=== PATIENT | female | born 1965 | race Asian ===

== ENCOUNTER 2018-08-31 09:14 | Day surgery (SDC) | payer OTHER ==
[2018-08-31] MEDS ORDERED: LACTATED RINGERS 1,000 ML IV ONE (09:47)
[2018-08-31] MEDS ORDERED: fentaNYL 250 MCG/5 ML VIAL IVP ONE (10:43)
[2018-08-31] MEDS ORDERED: MIDAZOLAM 2 MG/2 ML VIAL IVP ONE (10:43)
[2018-08-31] MEDS ORDERED: ONDANSETRON 4 MG/2 ML VIAL ONE (11:14)
[2018-08-31 11:36] VITALS: BP 98/72
== END 2018-08-31 09:15 | disposition home or self-care (01) ==
LOC: SDS 09:14
PROVIDERS: ATTEND Surgery
PROC: 0DJD8ZZ Inspection of Lower Intestinal Tract, Via Natural or Artificial Opening Endoscopic (ICD-10-PCS; principal; 2018-08-31 10:30)
DX: Z12.11 Encounter for screening for malignant neoplasm of colon (principal); K64.8 Other hemorrhoids; E66.3 Overweight; Z68.26 Body mass index [BMI] 26.0-26.9, adult; K21.9 Gastro-esophageal reflux disease without esophagitis
CPT/HCPCS: 45378; J3010; J7120

== ENCOUNTER 2020-05-30 13:15 | Outpatient (CLI) | payer OTHER ==
--- NOTE | 2020-05-30 16:29 | CONSULTATION NOTE ---
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 Her most recent cystoscopy in January, was clear. Patient unfortunately presented with increasing back pain, did participate in physical therapy for over 4 weeks, without any improvement. Unfortunately in the middle of this, she had changed primary care providers, and with increasing pain was seen in urgently the ED, with diagnosis of recurrence with mets to spine, lung, and lymph nodes. In the context of this, she was biopsied through a lymph node, with a diagnosis of metastatic urothelial cancer. She is being seen at [facility], and has had her first treatment of chemotherapy with gemcitabine and cis- napakiak. She did fairly well with this, in fact has had improvement of her pain, most likely attributed to her dexamethasone 4 mg twice daily. Patient's pain is mostly located in the lower back with a band across her lower lumbar area, she has pain radiating into her right hip, down her right leg and most intensely on the outer right calf area. She describes it as a tight gripping pain, this fluctuates some. She has had bad experience with oxycodone before with severe nausea and vomiting and flushing. She has managed to tolerate hydrocodone, though with some tentativeness, she has been using one half to full tab every 4 hours [id number]. She does feel like this is adequately managed it, has had intermittent ibuprofen though they have wanted her to avoid this because of her kidneys so she has good kidney function. I believe her pain is most likely improved today because of the dexamethasone, she still has pain, but is able to ambulate with only a small foot drop, is able to get from sitting to standing. She does report pain exacerbates at nighttime. She is to receive radiation to the spine, in the context of this she is hesitant to do much change with her pain regimen. We did discuss in the scheme of things with her neuropathic component, would recommend adding pregabalin, because of her hesitancy and side effects of medications, would recommend we "test dose" pregabalin 25 mg at bedtime particularly since she awakens in pain with sharp shooting down her right leg. Counseling provided regarding long acting and short acting medication, patient at this point in time is taking equal analgesic to fentanyl 12 mcg patch, could translate over at point patient is stable from post radiation. We also discussed bridging if her pain exacerbates over the weekend, with 4 mg daily for pain until radiation simulated and completed. Patient's other symptom burden includes anorexia, though she is remains fairly weight stable, fatigue, and just the anxiety of dealing with a serious illness. I am meeting with patient and her today, to establish care, and initiate conversation regarding goals of care. Medical/Surgical History - Past Medical History Cardiovascular: reports: High cholesterol Respiratory: reports: Asthma GI: reports: GERD : reports: Other (bladder cancer) Psych: reports: Claustrophobia Musculoskeletal: reports: Osteoarthritis, Fatigue Derm: reports: Eczema MRSA Hx?: No - Past Surgical History /PERINATAL TECH: reports: section (), Other (nephrectomy 03/01/2019; bladder resect for cancer) Cardiovascular: reports: Other (portacath placement) - Substance History Use: Uses substance without health or social issues: Tobacco (none), Alcohol (rarely) Social History - Living Situation Living arrangement: At home Living Situation: With spouse/s.o. Support System: Patient is to Seth, they have been together for 17 years, though discussed this last winter. She has 2 sons, 1 who is currently [facility], the other is here and available for support. She also has 2 siblings who are providing support, taking turns to help with household and support through chemotherapy sessions. She has still been working, she has a [employer], is trying to sort through all the pieces regarding her current situation and implications for her future. She has supportive scientologist community, has set up a [employer], and is looking at ways to better support her sons as well. Family History - Family History Family History: Mother: (sister 62 of neuroendocrine CA of liver), CAD, Cancer (breast cancer), Diabetes, Type 2, Father: , Cancer, Sister: , Cancer Family History Comment/Other: Which she has had experience with her father dying a further prolonged of glioblastoma, they did care for him through his end-of-life. She also had experience with her sister who fairly quickly within a few months of her diagnosis. Medications/Allergies - Medications Home Medications: Ambulatory Orders Medication Instructions Recorded Confirmed Albuterol Sulf [Ventolin Hfa 1 puffs PO DAILY PRN 08/30/18 05/30/20 Inhaler] EPINEPHrine [Epinephrine] 1 ml SQ ONCE PRN 08/30/18 05/30/20 Pravastatin [Pravachol] 10 mg PO DAILY 08/30/18 05/30/20 HYDROcod/ACETAM 5/325 [[place] 5/325] 1 - 2 tab PO Q4HR PRN 05/30/20 05/30/20 Ondansetron [Ondansetron Odt] 8 mg PO Q8HR PRN 05/30/20 05/30/20 Pregabalin [Lyrica] 25 mg PO QPM 05/30/20 05/30/20 Prochlorperazine Maleate 10 mg PO Q8HR PRN 05/30/20 05/30/20 [Compazine] Senna [Senokot] 2 tab PO BID MDD titrate to effect 05/30/20 05/30/20 dexAMETHasone [Decadron] 4 mg PO BID MDD Scheduled with 05/30/20 05/30/20 chemo polyethylene glycoL 3350 [Miralax] 17 gm PO DAILY 05/30/20 05/30/20 Cholecalciferol (Vitamin D3) 1,000 units PO DAILY 06/01/20 06/01/20 [Vitamin D3] Ibuprofen [Motrin] 400 mg PO Q6HR PRN 06/01/20 06/01/20 - Allergies Allergies/Adverse Reactions: Allergies Allergy/AdvReac Type Severity Reaction Status Date / Time peanut Allergy Severe Anaphylaxis Verified 08/30/18 14:43 sulfamethoxazole Allergy Severe Anaphylaxis Verified 08/30/18 14:43 [From ] trimethoprim [From ] Allergy Severe Anaphylaxis Verified 08/30/18 14:43 adhesive AdvReac Rash Verified 06/01/20 17:56 oxycodone AdvReac Diaphoresis Verified 06/01/20 17:57 Review of Systems - Constitutional Constitutional: reports: Fatigue, Weakness, Poor appetite. denies: Fever, Chills - Eyes Eyes: reports: Corrective lenses (reading) - Ears, Nose & Throat Ears, Nose & Throat: reports: Dry mouth (taste changes), Other (recent node right neck; r/o CA-suspect possible rx to COVID vaccine) - Cardiovascular Cardiovascular: reports: Decr. exercise tolerance - Respiratory Respiratory: reports: Wheezing (asthma) - Gastrointestinal Gastrointestinal: reports: Constipation, Poor appetite, Early satiety - Genitourinary Genitourinary: denies: Incontinence - Neurological Neurological: reports: Focal weakness (right leg), Numbness, Abnormal gait - Psychiatric Psychiatric: denies: Depression, Anxiety - Hematologic/Lymphatic Hematologic/Lymph: reports: Anemia (persistent prior to dx). denies: Recurrent infections - All Other Systems All Other Systems: reports: Reviewed and negative Physical Exam - Vital Signs Temperature: 97.7 C Pulse Rate: 74 Respiratory Rate: 16 O2 Saturation: 98 (ra @ rest) Blood Pressure: 124/74 - Physical Exam General Appearance: positive: Alert, Mild distress Eyes Bilateral: positive: Normal inspection ENT: positive: No signs of dehydration Neck: positive: Trachea midline Cardiovascular: positive: Regular rate & rhythm Respiratory: positive: No respiratory distress, Breath sounds nml Abdomen: positive: Soft, Nml bowel sounds Skin: positive: Pallor, Dryness Extremities: positive: Other (slight foot drag on right; limited ability to aduct and lift; hip flexion forward limited to mid calf; making dressing di fficult) Neurologic/Psychiatric: positive: Oriented x3, Mood/affect nml Palliative Care - POLST Patient has POLST: No Pain: Comment (see HPI) Tiredness/Fatigue: Mild (1-3) Drowsiness/Sedation: Mild (1-3) Nausea: Mild (1-3) Anorexia: Moderate (4-6) Dyspnea: None Depression: None Anxiety: None Feelings of wellbeing/Perceived Quality of Life: Good Sleep: Variable sleep pattern Constipation: Yes, Opoid induced, Intermittent constipation Performance Status: Patient has had fluctuation in her functional status, it is improved currently with higher doses of dexamethasone. She is able to get from sitting to standing, ambulate with a rolling walker, get in and out of bed, but has limited forward flexion, does need some assistance with lower extremity dressing. This makes toileting very complicated, they do have some adaptive equipment. - Palliative Care Discussion: Family meeting with patient and her Seth. This is been fairly quick and overwhelming experience with her diagnosis, as well as trying to navigate a very complex and involved treatment plan. She has completed her first cycle of chemotherapy, her siblings are taking shifts and community is riling to provide support. Patient is aware of the seriousness of her diagnosis, is trying to stay in the moment and hoping for the best. She feels best by coping with small chunks of information, she has not been out "searching on the Internet", but does like to be involved in her decision making and feels best when things are organized and hoping to create a sense of control. Her her current goals are to focus on quality of life issues, and particularly assisting with getting her pain under control and mobility. She has had 2 experiences in her family regarding cancer, her family took care of her father for several years with a glioblastoma, and in juxtaposition her sister who within a few months. Counseling provided to normalize current feelings, set goals of care, and prov em information on role of palliative care in the context of pain and symptom management, and anticipatory guidance. Results - Lab Results Lab results reviewed: Yes Lab and Imaging Results: 05/27 WBC is 8.5; RBC 3.88; hemoglobin 10.4; hematocrit 33%; platelets 308 Impression and Recommendations - Palliative Care Impression: This is a micki 54-year-old woman who presents with urethral CA status post radical nephrectomy on right, with initiation of chemotherapy of gemcitabine/cis-napakiak, and pending radiation to her L3 and L4. Patient presents with moderate symptom burden, with pain, anorexia, constipation, and fatigue. Palliative care establishing rapport, exploring goals of care, and anticipatory guidance as well as pain and symptom management Recommendations/Counseling Done: 1. Pain of neoplastic origin. Patient's pain is multifactorial, though focalized pain is attributed to her L4 lesion, with radiation across her lower back, down into her right leg short shooting down with most severe pain and outer right calf area. She does get some relief with her hydrocodone 5 mg / 325 mg half tab to 1 tab every 4 hours, she is quite hesitant regarding finding balance between sedation and pain management. She is hopeful with the chemotherapy as well as pending radiation on the spine, to be able to minimize opioid burden. She has gotten quite a bit of relief with the dexamethasone 8 mg she has been taking for her antiemetic for chemotherapy. Counseling provided regarding if pain escalates after discontinuation, she can continue use 4 mg daily until radiation effective or implemented. Also given the neuropathic component of her pain, recommended pregabalin, given her hesitation for medications and side effects, recommended we trial 25 mg at bedtime, to test dose her response to this. Counseling also provided regarding recommendation of long-acting pain medication, would recommend fentanyl 12 mcg patch given her side effects of oxycodone, reviewed could start at low dosing, fentanyl 12 mcg equals 4 tabs of Vicodin, she is currently using between 4-6 tabs. Counseling provided regarding titration can use 1-2 up to 8 tabs in 24 hours. She is also supplementing with ibuprofen, encouraged not to use during time she is using dexamethasone. Agreed would wait until radiation initiated and completed, and titrate pain medication accordingly, most likely is still going to need some opioid support. 2. Constipation, opioid induced. Counseling provided regarding bowel program, instructed to take half to 1 capful MiraLAX daily, with ability titration up to 2 times a day, as well as senna 8.6 mg 2 tabs twice a day, with increase to 6-8 tabs if no BM in 48 hours. Counseling regarding goal for regular bowel movement daily, and titration of MiraLAX versus senna. 3. Anxiety. This is multifactorial, given her current initiation of treatment, work-up and staging of disease, as well as establish care at [facility] and now with palliative care. Counseling provided to normalize grief and loss process, negotiate how best to share information and support coping, and looking at local resources to support sons. 4. Advanced care planning. Patient and have done some advance care planning regarding their boyd, DPOA, advanced care planning documents. We will continue to explore goals of care, short-term goals are to have better pain control, improve mobility, and establish rapport with palliative care. Both have had experiences with hospice and end-of-life planning, and their own family experiences. Counseling provided regarding the continuum of care, hoping for th e best, but also continuing to explore resources that would be of benefit. 90 minutes with greater than 50% of this done in counseling regarding pain and symptom management, goals of care, establishing rapport and anticipatory guidance. [facility]: [phone]
== END 2020-05-30 13:16 | disposition home or self-care (01) ==
LOC: PC 13:15
PROVIDERS: ATTEND Nurse Practitioner Adult Health
DX: Z51.5 Encounter for palliative care (principal); G89.3 Neoplasm related pain (acute) (chronic); C68.8 Malignant neoplasm of overlapping sites of urinary organs; C78.00 Secondary malignant neoplasm of unspecified lung; C77.9 Secondary and unspecified malignant neoplasm of lymph node, unspecified; C79.51 Secondary malignant neoplasm of bone; K59.03 Drug induced constipation; T40.2X5A Adverse effect of other opioids, initial encounter; F41.9 Anxiety disorder, unspecified; Z79.899 Other long term (current) drug therapy; Z90.5 Acquired absence of kidney; Z79.891 Long term (current) use of opiate analgesic
CPT/HCPCS: 99345

== ENCOUNTER 2020-06-06 12:15 | Outpatient (CLI) | payer OTHER ==
--- NOTE | 2020-06-06 17:01 | CONSULTATION NOTE ---
Palliative Care Follow Up - Referral Referring Provider: Gladis SHOOK Time of Visit: [id number] Referral setting: Home Referral Reason: Pain of neoplastic origin/Urothelial Met Cancer with bone mets - Information Sources Records reviewed: Previous records reviewed History/Review of Systems obtained from: Patient, Family ( Seth present) Exam limitations: No limitations - History of Present Illness Update Brief HPI Update: Please see previous P HI on 05/30 for more complete history. 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 She is currently being seen at [facility], and receiving gemcitabine and cis- [place]. She is scheduled to have radiation next week for her L3 and L4 mets, this is the source of her severe pain. She is hopeful to get relief regarding her pain, as well as consideration of both quantity and quality of life with her current treatment plan for stage IV disease. Palliative care is seeing patient for pain management. We had trialed a small dose of pregabalin 25 mg at bedtime, she is having some altered cognitive issues with dreams, and awakening. She does though feel it may be improving her pain on awakening. This is her most significant 10 out of 10 pain when she gets up in the morning after laying flat all night in her bed, and waiting for medication to "kick in" as well as change in position helps. She is mostly sleeping on her left side to relieve the stress. Her pain is located across the band of her lower lumbar area and radiates down to her right hip, down into her right leg and intensely sharp shooting on the out right calf area, described as a vice logistic manager. She has been using hydrocodone 5 mg / 325 mg every 4 hours [id number], has had a few flares with rescue of ibuprofen. She also is using ice pack on her back with good relief. She is most uncomfortable sitting or standing in one position, the long car rides have triggered pain exacerbations. She is hesitant to change up her pain regimen as she is awaiting hopefully a good response from radiation, we have agreed to continue her current regimen until post radiation in time to see if this is impacted by it. Review of MRI for radiation planning purposes, on 06/03 showed a replacement of the L4 and L3 vertebral body marrow with cellular process, epidural extension is seen on the right side which would account for her neuropathic pain component, and there are pathologic fractures of both vertebrae which appear to have progressed slightly since last CT scan as patient has epidural disease. It also shows a small focus in the L5 which is more apparent than earlier study. She is scheduled for both 06/11 and 06/13 with possible steroid dosing when she sees the radiation oncologist. She does have some mild anorexia, attributes this to taste changes as well as persistent fatigue and anxiety appropriate for the situation. Past Medical History: Urethral CA status post radical nephrectomy on 03/01/2019; bladder cancer status post TURBTs; High cholesterol, asthma, GERD, claustrophobia, osteoarthritis, eczema, cesareans section x2, Port-A-Cath placement Social History - Living Situation Living arrangement: At home Living Situation: With spouse/s.o. Support System: Patient is to Seth, they have been together 17 years though just got this last year. She has 2 sons, she also has siblings who are providing support. She has been still working as she is a [employer] company, she is still trying to sort through her legal and financial planning. She has a very supportive jehovah's witness and community. Medications/Allergies - Medications Home Medications: Ambulatory Orders Medication Instructions Recorded Confirmed Albuterol Sulf [Ventolin Hfa 1 puffs PO DAILY PRN 08/30/18 06/08/20 Inhaler] EPINEPHrine [Epinephrine] 1 ml SQ ONCE PRN 08/30/18 06/08/20 Pravastatin [Pravachol] 10 mg PO DAILY 08/30/18 06/08/20 HYDROcod/ACETAM 5/325 [[place] 5/325] 1 - 2 tab PO Q4HR PRN MDD 8 05/30/20 06/08/20 tabs/24 hrs Ondansetron [Ondansetron Odt] 8 mg PO Q8HR PRN 05/30/20 06/08/20 Pregabalin [Lyrica] 25 mg PO QPM MDD 50 mg @ hs 05/30/20 06/08/20 Prochlorperazine Maleate 10 mg PO Q8HR PRN 05/30/20 06/08/20 [Compazine] Senna [Senokot] 2 tab PO BID PRN MDD titrate to 05/30/20 06/08/20 effect dexAMETHasone [Decadron] 4 mg PO BID MDD Scheduled with 05/30/20 06/08/20 chemo polyethylene glycoL 3350 [Miralax] 17 gm PO DAILY PRN 05/30/20 06/08/20 Cholecalciferol (Vitamin D3) 1,000 units PO DAILY 06/01/20 06/08/20 [Vitamin D3] Ibuprofen [Motrin] 400 mg PO Q6HR PRN 06/01/20 06/08/20 - Allergies Allergies/Adverse Reactions: Allergies Allergy/AdvReac Type Severity Reaction Status Date / Time peanut Allergy Severe Anaphylaxis Verified 08/30/18 14:43 sulfamethoxazole Allergy Severe Anaphylaxis Verified 08/30/18 14:43 [From ] trimethoprim [From ] Allergy Severe Anaphylaxis Verified 08/30/18 14:43 adhesive AdvReac Rash Verified 06/01/20 17:56 oxycodone AdvReac Diaphoresis Verified 06/01/20 17:57 Review of Systems - Constitutional Constitutional: reports: Fatigue, Weakness, Poor appetite, Weight loss. denies: Fever, Chills - Eyes Eyes: reports: Corrective lenses (reading) - Ears, Nose & Throat Ears, Nose & Throat: reports: Dry mouth (taste changes), Other (recent node right neck; r/o CA-suspect possible rx to COVID vaccine) - Cardiovascular Cardiovascular: reports: Decr. exercise tolerance - Respiratory Respiratory: reports: Wheezing (asthma). denies: SOB at rest - Gastrointestinal Gastrointestinal: reports: Constipation (currently controlled), Nausea (intermittent), Poor appetite, Early satiety - Integumentary Integumentary: reports: Dryness - Neurological Neurological: reports: Focal weakness (right leg), Numbness, Abnormal gait - Psychiatric Psychiatric: reports: Anxiety - Hematologic/Lymphatic Hematologic/Lymph: reports: Anemia (persistent prior to dx). denies: Recurrent infections - All Other Systems All Other Systems: reports: Reviewed and negative Physical Exam - Vital Signs Temperature: 97.9 C Pulse Rate: 78 Respiratory Rate: 18 O2 Saturation: 98 (ra @ rest) Blood Pressure: 114/68 - Physical Exam General Appearance: positive: No acute distress, Alert Eyes Bilateral: positive: Normal inspection ENT: positive: No signs of dehydration Neck: positive: Trachea midline Cardiovascular: positive: Regular rate & rhythm Respiratory: positive: No respiratory distress, Breath sounds nml Abdomen: positive: Soft, Nml bowel sounds Skin: positive: Pallor, Dryness Extremities: negative: Full ROM (limited on RLE) Neurologic/Psychiatric: positive: Oriented x3, Mood/affect nml Palliative Care - POLST Patient has POLST: No POLST Status: Full Code Pain: Pain unchanged, Pattern (SEE HPI) Tiredness/Fatigue: Moderate (4-6) Drowsiness/Sedation: Mild (1-3) Nausea: Mild (1-3) Anorexia: Mild (1-3) Dyspnea: None Depression: None Anxiety: Mild (1-3) Sleep: Variable sleep pattern Constipation: Yes, Opoid induced, Managed Performance Status: Patient is adapting some to reaching her lower extremities, though still remains quite limited. She is having some difficulty getting in and out of bed related to her right hip and leg pain. She is able to manage her shower with minor assist, ambulating with a rolling walker. - Palliative Care Discussion: It is been very busy and somewhat overwhelming with initiation of chemotherapy, now to complete radiation therapy on the week that she is soft, as well as transportation [id number] to [facility]. She is trying to manage as she is organizing financial legal affairs, wanting very much to stay in the moment, and is hoping for the best with improvement in her pain, and successful treatment. She does have good social support, she has a friend coming with medical background, who is can help her this next week with her radiation. This gives her a sense of confidence and also her a break. Results - Lab Results Lab results reviewed: Yes Lab and Imaging Results: 06/03 magnesium 2.1; WBC 5.5 when; RBC 3.67; hemoglobin 9.9; hematocrit 31; platelet count 223 chemistries are within normal range Impression and Recommendations - Palliative Care Impression: This is a micki 54-year-old woman who presents with urothelial CA status post radical nephrectomy on right, bladder cancer with mets to the L3, L4, and pulmonary mets. Patient has pending radiation scheduled next week. Patient presents with moderate symptom burden of pain, anorexia, and fatigue. Pa lliative care providing support for pain and symptom management, anticipatory guidance, as well as exploring goals of care Recommendations/Counseling Done: 1. Pain of neoplastic origin. Patient's pain is multifactorial, though focalized pain is attributed to her L3/L4 Lesions with epidural extension on right side. She is pending radiation, her pain is exacerbated by the car ride and laying flat. Counseling provided regarding some strategies to manage around these episodes. Radiation oncology also looking at doing steroids, if she does have a flare and persistent, would recommend adding dexamethasone. Counseling provided regarding [id number] dosing of Vicodin, encouraged to increase pregabalin to 50 mg at bedtime, she has had some side effects, but may benefit from higher dosing given the neuropathic component of her pain. Patient would benefit from long-acting opioid, but would like to wait until results of radiation therapy are known. 2. Constipation, opioid induced. Patient has not needed laxatives, suspect as a result of side effects of her chemo. Counseling provided though regarding titration of bowel meds, and to not let greater than 48 hours ago. 3. Anxiety. This is multifactorial, both she and her are somewhat overwhelmed with their most recent schedule, should settle down after completion of radiation, is still quite burdensome traveling down to [place]. Encouraged verbalization of normal grief and loss processes. 4. Advanced care planning. Patient continues to complete legal and financial documents, will await outcome of radiation and further response to treatment regarding priorities and goals of care. 45 minutes with greater than 50% of this done in counseling for pain and symptom management, anticipatory guidance, and establishing rapport
== END 2020-06-06 12:16 | disposition home or self-care (01) ==
LOC: PC 12:15
PROVIDERS: ATTEND Nurse Practitioner Adult Health
DX: Z51.5 Encounter for palliative care (principal); G89.3 Neoplasm related pain (acute) (chronic); C67.9 Malignant neoplasm of bladder, unspecified; C78.00 Secondary malignant neoplasm of unspecified lung; C77.9 Secondary and unspecified malignant neoplasm of lymph node, unspecified; C79.51 Secondary malignant neoplasm of bone; K59.03 Drug induced constipation; T40.2X5A Adverse effect of other opioids, initial encounter; F41.9 Anxiety disorder, unspecified; Z79.899 Other long term (current) drug therapy; Z90.5 Acquired absence of kidney
CPT/HCPCS: 99349

== ENCOUNTER 2020-07-03 11:10 | Outpatient (CLI) | payer OTHER ==
--- NOTE | 2020-07-03 17:04 | CONSULTATION NOTE ---
Palliative Care Follow Up - Referral Referring Provider: Gladis SHOOK Time of Visit: [id number] Referral setting: Home Referral Reason: Pain of neoplastic origin/LE swelling/Constipation/Met Urothelial CA - Information Sources Records reviewed: Previous records reviewed History/Review of Systems obtained from: Patient, Family ( Seth) Exam limitations: No limitations - History of Present Illness Update Brief HPI Update: Please see previous HPI on 05/30 for more complete history. This is a micki 54-year-old woman with right upper tract urothelial cancer status post radical nephrectomy and bladder cancer recurrence with mets to the spine, lung, and lymph nodes. She is currently being seen at [facility] and has been receiving gemcitabine and cis[place], has completed cycle 2, with plans for restaging scans after the end of cycle 3 to start again next Tuesday. She is starting to experience some cumulative effects with persistent fatigue, she had received Zometa with significant flare of joint pain particularly in her right ankle and right hip, and she does have a significant lesion at her L3/L4 with epidural extension on the right side which accounts for her neuropathic component, and there are pathologic surgical fractures that had progressed on her latest MRI. She did receive radiation to this area, with some improvement, but still remains at moderate to severe in severity despite medication changes. She feels this worsened after her Zometa infusion, but she also had a long day which included difficult positioning and pressure on the area and may have contributed to the exacerbation. She felt prior to this hopeful that the pain was improved from the radiation as needed very little breakthrough medication. Patient's pain is mostly focalized in the lower lumbar area, with a burning discomfort band across the back. The pain escalates with sitting, she often needs to stand for relief and ambulate to get the numbness and burning discomfort relieved. She presents today with some increased pain in her right ankle and hip area. Her pain does limit her functional status to be able to get from sitting to standing, to tolerate getting in and out of bed, and for forward bending. Currently she has been transition to Hysingla 20 mg extended release which she is taking at bedtime with goal to limit APAP, she is still using the short acting morphine 7.5 to 15 mg 3-4 times a day [id number], she dislikes the cognitive fuzziness she experiences with this. She is currently not on the dexamethasone, but this has been helpful in the past for pain, she is using ibuprofen 400 mg on awakening and at bedtime as this does help supplement her pain regimen and gives her the most relief with her joint discomfort and takes the edge off her back pain. She is still not able to sleep through the night related the pain, often has to get up around 334 to take pain medication and wait for it to kick in as well as "walk it out". Her other persistent symptom has been low-grade nausea, worsening with the chemotherapy, but still persistent on other days, she is currently taking ondansetron in the a.m., and Compazine at night. She presents with some lower extremity edema, mostly centered in her ankles, 1+ up to mid calf, this is a new symptom for her and she is feeling somewhat discouraged, this has been gradual in onset. Past Medical History: Urothelial CA status post nephrectomy on 02/2019; bladder cancer 07/2019 status post TURBT S, hypercholesteremia, asthma, GERD, claustrophobia, osteoarthritis, eczema, sections x2, Port-A-Cath placement Social History - Living Situation Living arrangement: At home Living Situation: With spouse/s.o. Support System: Patient is to Seth, they have been together 17 years though just got this last January. She has 2 sons, she also has siblings to them rotating to them providing support. She has very micki community that is providing meals and psychosocial support. She is still working as she has a [employer] company she is still working through her legal financial planning. Medications/Allergies - Medications Home Medications: Ambulatory Orders Medication Instructions Recorded Confirmed Albuterol Sulf [Ventolin Hfa 1 puffs PO DAILY PRN 08/30/18 07/03/20 Inhaler] EPINEPHrine [Epinephrine] 1 ml SQ ONCE PRN 08/30/18 07/03/20 Pravastatin [Pravachol] 10 mg PO DAILY 08/30/18 07/03/20 Ondansetron [Ondansetron Odt] 8 mg PO Q8HR PRN 05/30/20 07/03/20 Prochlorperazine Maleate 10 mg PO Q8HR PRN 05/30/20 07/03/20 [Compazine] Senna [Senokot] 2 tab PO BID PRN MDD titrate to 05/30/20 07/03/20 effect dexAMETHasone [Decadron] 4 mg PO BID MDD Scheduled with 05/30/20 07/03/20 chemo polyethylene glycoL 3350 [Miralax] 17 gm PO DAILY PRN 05/30/20 07/03/20 Cholecalciferol (Vitamin D3) 1,000 units PO DAILY 06/01/20 07/03/20 [Vitamin D3] Ibuprofen [Motrin] 400 mg PO Q6HR PRN 06/01/20 07/03/20 Hydrocodone Bitartrate [Hysingla 30 mg PO DAILY 07/03/20 07/03/20 ER] Morphine Ir [Ms Ir] 7.5 - 15 mg PO Q3HR PRN 07/03/20 07/03/20 - Allergies Allergies/Adverse Reactions: Allergies Allergy/AdvReac Type Severity Reaction Status Date / Time peanut Allergy Severe Anaphylaxis Verified 08/30/18 14:43 sulfamethoxazole Allergy Severe Anaphylaxis Verified 08/30/18 14:43 [From ] trimethoprim [From ] Allergy Severe Anaphylaxis Verified 08/30/18 14:43 adhesive AdvReac Rash Verified 06/01/20 17:56 oxycodone AdvReac Diaphoresis Verified 06/01/20 17:57 Review of Systems - Constitutional Constitutional: reports: Fatigue (worsening; feeling cumulative effect), Weakness, Weight stable. denies: Fever, Chills - Eyes Eyes: reports: Corrective lenses (reading) - Ears, Nose & Throat Ears, Nose & Throat: reports: Dry mouth (taste changes) - Cardiovascular Cardiovascular: reports: Edema (new symptom), Decr. exercise tolerance - Respiratory Respiratory: reports: Wheezing (asthma). denies: SOB at rest - Gastrointestinal Gastrointestinal: reports: Constipation (currently controlled), Nausea (intermittent but persistent; using ondansetron AM/compazine PM), Early satiety - Musculoskeletal Musculoskeletal: reports: Back pain, Muscle aches, Stiffness, Limited range of motion, Muscle weakness, Joint pain (right ankle/hip), Assistive devices (uses walker for ambulation) - Integumentary Integumentary: reports: Dryness - Neurological Neurological: reports: Focal weakness (right leg), Numbness, Abnormal gait - Psychiatric Psychiatric: reports: Anxiety - Hematologic/Lymphatic Hematologic/Lymph: reports: Anemia (persistent prior to dx; HGB 7.4). denies: Recurrent infections - All Other Systems All Other Systems: reports: Reviewed and negative Physical Exam - Vital Signs Temperature: 97.7 C Pulse Rate: 94 Respiratory Rate: 18 O2 Saturation: 99 (ra @ rest) Blood Pressure: 106/72 - Physical Exam General Appearance: positive: No acute distress, Alert, Other (fatigued) Eyes Bilateral: positive: Normal inspection ENT: positive: No signs of dehydration Neck: positive: Trachea midline Cardiovascular: positive: Regular rate & rhythm Respiratory: positive: No respiratory distress, Breath sounds nml. negative: Wheezes Abdomen: positive: Soft, Nml bowel sounds Skin: positive: Pallor, Dryness Extremities: positive: Pedal edema. negative: Full ROM (limited on RLE) Neurologic/Psychiatric: positive: Oriented x3, Mood/affect nml Palliative Care - POLST Patient has POLST: No Pain: Pain worsening, Comment (Hysingla 20 mg extended release, MSIR 7.5-15 mg q 4 about 3-4 x day) Tiredness/Fatigue: Severe (7-10) Drowsiness/Sedation: Moderate (4-6) (takes naps) Nausea: Mild (1-3) (persistent low grade) Anorexia: Mild (1-3) Dyspnea: Mild (1-3) (with activity) Depression: Mild (1-3) Anxiety: Mild (1-3) Feelings of wellbeing/Perceived Quality of Life: Fair, Worsening, Comment (related to fatigue and worsening pain) Sleep: Variable sleep pattern (up at least once related to pain) Constipation: Yes, Opoid induced, Intermittent constipation, Comment (perceives senna increases nausea) Performance Status: Patient is able to manage her ADLs with some assistance, she is ambulatory with her walker. Given her persistent fatigue she has less energy and activity tolerance. She does need help getting from sitting to standing secondary to quad strength and pain. - Palliative Care Discussion: Palliative care discussion centered on patient and 's experience through the treatment process, managing symptoms, emotional components regarding this. Patient is appropriately tearful, is starting to feel some the cumulative effects of both treatment and her persistent pain. She has good social support, discussed ways to support her coping as well as her , who is demonstrating some caregiving fatigue. Results - Lab Results Lab results reviewed: Yes Lab and Imaging Results: Labs from 518 do show significant anemia with hemoglobin of 7.4, hematocrit 23, WBC 2.96, platelets 77; CMP within normal limits, so albumin is 3.4, total p rotein 6.0 Impression and Recommendations - Palliative Care Impression: This is a micki 54-year-old woman who presents with urothelial CA S/PE radical nephrectomy on right, bladder cancer with mets to L3/L4 and pulmonary. Patient is completed radiation, with some improvement of pain, but pain remains persistent. Patient presents with moderate to high symptom burden, of pain, worsening fatigue, low-grade nausea, mild depressive symptoms as well as some decline in functional status. Palliative care providing support for pain and symptom management, anticipatory guidance, and goals of care. Recommendations/Counseling Done: 1. Pain of neoplastic origin. Patient's pain is multifactorial, though l ocalized pain is attributed to L3/L4 lesions with epidural extension on right side. She has received her radiation, still awaiting to see where final relief "lands" and where her new normal lives. She does have acute exacerbations of her pain particularly with sitting, and laying flat in bed. She was started on Hysingla extended release 20 mg, she did find this improved over the intermittent dosing of Vicodin, with the goal to avoid acetaminophen load. She is still needing MS IR 7.5 to 15 mg [id number], using avg 4 doses, and still awakening with fairly severe pain at night. I will go ahead and titrate up to 30 mg extended relief, discussed other options, does find the morphine causing increased fussiness and sedation, and most likely adding to her nausea, may benefit from fentanyl patch, but would like to continue to work with the hydrocodone. Patient's morphine only lasting 3 hours at times related to exacerbation in severity, encouraged to take full tablet and can repeat at 3 hours given the fluctuating pain patterns. Patient still awaiting final outcome of radiation, still may benefit from addition of reinitiating pregabalin for neuropathic component, will continue to evaluate. 2. Constipation, opioid induced. Patient has not needed Yan laxatives, she does have some intermittent constipation, relieved with senna though this as to her nausea. Revisited trialing MiraLAX again, at smaller dose with more preventative approach. She does have a recipe for the lax log, discussed pros and cons of titration and regulation, this is based on senna as well. 3. Anxiety. This is multifactorial, it has been quite overwhelming with the schedule, medication titration, and now worsening symptoms of fatigue secondary to anemia and chemotherapy. She will be starting her third cycle next week, continues to focus on the positive, though does understand the seriousness of her illness. Counseling provided to normalize her current responses, and recommendations for support of coping. 4. Fatigue. This most likely is related to her worsening anemia, patient does not present with dizziness, shortness of breath mild with activity, but is feeling poorly as a result. She is due for labs again next Tuesday, may need to consider transfusion or modification of chemo dosing. Counseling provided regarding pacing activity, and energy conservation. 5. Lower extremity edema. This is multifactorial, patient has been on high doses of dexamethasone with her radiation, also has her legs and feet down most of the day, secondary to discomfort with sitting or elevating legs. And most likely exacerbated by her anemia. Patient instructed on putting on mild compression hose, we did find some supportive socks, did put these on with some relief and improvement of discomfort already. Instructed to get diabetic knee- high socks with mild compression secondary to her difficulty getting things on and off as well discomfort. 6. Advanced care planning. Continue to explore goals of care, place to support her and her family, will continue to work on advance care planning, particularly in the context of pending restaging. 60 minutes with greater than 50% of this done and counseling regarding pain and symptom management, anticipatory guidance, and psychosocial support.
== END 2020-07-03 11:11 | disposition home or self-care (01) ==
LOC: PC 11:10
PROVIDERS: ATTEND Nurse Practitioner Adult Health
DX: Z51.5 Encounter for palliative care (principal); G89.3 Neoplasm related pain (acute) (chronic); C67.9 Malignant neoplasm of bladder, unspecified; C79.51 Secondary malignant neoplasm of bone; C78.00 Secondary malignant neoplasm of unspecified lung; F41.9 Anxiety disorder, unspecified; K59.03 Drug induced constipation; T40.2X5A Adverse effect of other opioids, initial encounter; R53.83 Other fatigue; C77.9 Secondary and unspecified malignant neoplasm of lymph node, unspecified; M79.89 Other specified soft tissue disorders; R11.0 Nausea; Z79.1 Long term (current) use of non-steroidal anti-inflammatories (NSAID); Z79.899 Other long term (current) drug therapy; Z90.5 Acquired absence of kidney; Z92.3 Personal history of irradiation
CPT/HCPCS: 99350

== ENCOUNTER 2020-07-17 11:00 | Outpatient (CLI) | payer SELFPAY ==
--- NOTE | 2020-07-17 16:32 | CONSULTATION NOTE ---
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 She is currently being seen at [facility] and receiving gemcitabine and cis-red devil, is completing cycle 3. She does have a known significant lesion at her L3/L4 with known epidural extension on the right which accounts for her neuropathic component of pain, now demonstrating also some right numbness which is new, persistent pain though in her ankle to her vaughan. She did not start the Hysingla 30 mg, but was transitioned to MS Contin extended release 15 mg twice daily, she is still using 7.5 mg 4 times daily. She did get some relief with the initial transition, but most likely was in the setting of increased dexamethasone which she does get some relief with. She is also supplementing with ibuprofen 400 mg usually at bedtime, sometimes during the day, her worst pain has been noted on day 8, unclear what is exacerbating other than the travel and also ends up being a long day of standing and difficulty positioning for her. She did receive a transfusion last week, unfortunately she also developed what was most likely a herpes zoster, and was on acyclovir which made her extremely nauseous. In reviewing the photos, it did blister but did not spread it was about 1 cm, and now is drying, with some residual burning and itching. She is keeping it covered, but is having some reaction to the adhesive. She continues to fluctuate appropriately with mood, her 4 siblings were here unfortunately this was during the time she is feeling poorly, she continues to have new and different things to adjust to on a regular basis. She is able to express her feelings around her journey, as well as she and her being able to have a conversation about the difficulty with all the variables that are happening for them.She is due to get labs on 6 8, and then have follow-up scans on , she has met in follow-up with radiation. She was hoping for better relief, though she did regain some function, and her pain levels did decrease given the severity of her lesion.. Past Medical History: Urothelial CA S/PE nephrectomy 02/2019; bladder cancer 07/2019 s/p TURBT, hypercholesteremia, asthma, GERD, claustrophobia, osteoarthritis, eczema, sections x2, Port-A-Cath placement Social History - Living Situation Living arrangement: At home Living Situation: With spouse/s.o. Support System: Patient is to Seth, they have been together 17 years though they just go t this last January. She has 2 sons who have been available and supportive, as well as 4 siblings who have been rotating around to provide support. Currently her cousin is here, she does find it helpful to have an extra layer of support and distraction. She has a micki community does providing meals as well as psychosocial support. She still continues to work as able. Medications/Allergies - Medications Home Medications: Ambulatory Orders Medication Instructions Recorded Confirmed Albuterol Sulf [Ventolin Hfa 1 puffs PO DAILY PRN 08/30/18 07/17/20 Inhaler] EPINEPHrine [Epinephrine] 1 ml SQ ONCE PRN 08/30/18 07/17/20 Pravastatin [Pravachol] 10 mg PO DAILY 08/30/18 07/17/20 Ondansetron [Ondansetron Odt] 8 mg PO Q8HR PRN 05/30/20 07/17/20 Prochlorperazine Maleate 10 mg PO Q8HR PRN 05/30/20 07/17/20 [Compazine] Senna [Senokot] 2 tab PO BID PRN MDD titrate to 05/30/20 07/17/20 effect dexAMETHasone [Decadron] 4 mg PO BID MDD Scheduled with 05/30/20 07/17/20 chemo polyethylene glycoL 3350 [Miralax] 17 gm PO DAILY PRN 05/30/20 07/17/20 Cholecalciferol (Vitamin D3) 1,000 units PO DAILY 06/01/20 07/17/20 [Vitamin D3] Ibuprofen [Motrin] 400 mg PO Q6HR PRN 06/01/20 07/17/20 Morphine Ir [Ms Ir] 7.5 - 15 mg PO Q3HR PRN 07/03/20 07/17/20 Morphine ER [Morphine Sulfate ER] 15 mg PO BID MDD TID 07/17/20 07/17/20 - Allergies Allergies/Adverse Reactions: Allergies Allergy/AdvReac Type Severity Reaction Status Date / Time peanut Allergy Severe Anaphylaxis Verified 08/30/18 14:43 sulfamethoxazole Allergy Severe Anaphylaxis Verified 08/30/18 14:43 [From ] trimethoprim [From ] Allergy Severe Anaphylaxis Verified 08/30/18 14:43 adhesive AdvReac Rash Verified 06/01/20 17:56 oxycodone AdvReac Diaphoresis Verified 06/01/20 17:57 Review of Systems - Constitutional Constitutional: reports: Fatigue, Weakness, Weight loss (143 attributes to taste changes; early satiety). denies: Fever, Chills - Eyes Eyes: reports: Corrective lenses (reading) - Ears, Nose & Throat Ears, Nose & Throat: reports: Dry mouth (taste changes) - Cardiovascular Cardiovascular: reports: Edema (new symptom improved with transfusion and support hose/elevation), Decr. exercise tolerance, Other (reports difficulty with portacath; sore to touch;) - Respiratory Respiratory: denies: SOB at rest - Gastrointestinal Gastrointestinal: reports: Nausea (intermittent but persistent; using ondansetron AM/compazine PM), Poor appetite, Early satiety, Other (taste changes). denies: Constipation (currently controlled) - Musculoskeletal Musculoskeletal: reports: Back pain, Muscle aches, Stiffness, Limited range of motion, Muscle weakness, Joint pain (right ankle/vaughan), Assistive devices (uses walker for ambulation) - Integumentary Integumentary: reports: Lesions (at back area), Dryness - Neurological Neurological: reports: Focal weakness (right leg), Numbness (worsening right side), Abnormal gait - Psychiatric Psychiatric: reports: Anxiety - Hematologic/Lymphatic Hematologic/Lymph: reports: Anemia (did drop to 7.3; received transfusion; 07/15 8.6). denies: Recurrent infections - All Other Systems All Other Systems: reports: Reviewed and negative Physical Exam - Vital Signs Temperature: 97.5 C Pulse Rate: 88 Respiratory Rate: 18 O2 Saturation: 98 (ra @ rest) Blood Pressure: 102/66 - Physical Exam General Appearance: positive: No acute distress, Alert Eyes Bilateral: positive: Normal inspection ENT: positive: No signs of dehydration Neck: positive: Trachea midline Cardiovascular: positive: Regular rate & rhythm Respiratory: positive: No respiratory distress, Breath sounds nml. negative: Wheezes Abdomen: positive: Soft, Nml bowel sounds Skin: positive: Pallor, Dryness, Other (dull pink < 1 cm; drying but moist base still) Extremities: positive: Pedal edema (improved; has support socks on). negative: Full ROM (limited on RLE) Neurologic/Psychiatric: positive: Oriented x3, Mood/affect nml Palliative Care - POLST Patient has POLST: No Pain: Comment (pain fluctuates; worse with sitting; releived with standing; on MS 15 mg ER and 7.5 mg QID; not awakening in such distress as before;) Tiredness/Fatigue: Moderate (4-6) Drowsiness/Sedation: Mild (1-3) Nausea: Mild (1-3) Anorexia: Moderate (4-6), Weight loss Dyspnea: None Depression: Mild (1-3) Anxiety: Mild (1-3) Feelings of wellbeing/Perceived Quality of Life: Fair, Comment (fluctuating) Sleep: Sleep improved Constipation: Yes, Managed Performance Status: Patient does have decreased activity tolerance, though is still ambulating with her walker, does have difficulty getting from sitting to standing from low chairs. She does have difficulty with forward flexion related to her L3/L4 lesion. She does need some assistance with bathing, has to pace herself with activity. Her functional status though has improved overall, she had gotten quite fatigued with her anemia. - Palliative Care Discussion: Family meeting with patient and , just discussed again how things are going with the journey, patient is what she describes as the "master pushing through", and this is not served her at this time. Counseling provided regarding normalizing grief and loss experience, living with serious illness, fluctuating moods is to be expected, as well as finding the silver lining. Patient does have appropriate levels of anxiety and depressive feelings, does not seem persistent in her depression. Caregiver and Seth expressing appropriate vulnerability and feelings as well. Results - Lab Results Lab results reviewed: Yes Lab and Imaging Results: Labs continue to look within normal limits, BUN 14, creatinine 0.79, protein 6.4, albumin 3.4, bilirubin 0.3, calcium 8.3, alk phos 70, RBC 2.99, hemoglobin 8.6, hematocrit 26%, magnesium 1.9 Impression and Recommendations - Palliative Care Impression: This is a micki 54-year-old woman who presents with metastatic bladder cancer with mets to the L3/L4, pulmonary and guicho. Patient continues with moderate symptom burden, pain is better controlled, fatigue somewhat improved with transfusion, continues with low-grade nausea and mild depressive symptoms as well as difficulty walking secondary to pain,numbness, and weakness. Palliative care providing support for pain and symptom management, anticipatory guidance, and goals of care. Recommendations/Counseling Done: 1. Pain of neoplastic origin. Patient's pain is multifactorial, though localized pain is attributed to L4/L4 lesions with epidural extension on right side. She has received some radiation, with some improvement but remains with fairly persistent pain, worsening numbness, localized to her right ankle and vaughan area. She is currently on MS extended release 15 mg Contin twice daily, n eeding supplement of about 30 mg of morphine total in 24 hours. She had had some relief initially, suspect it was more related to her dosing of Decadron with her chemotherapy. We did discuss if patient gets in a pain crisis, obviously she is responsive to steroids with her pain which is reassuring. Counseling provided regarding next step her recommendation to increase to 3 times daily, continue to monitor. 2. Constipation, opioid induced. Patient is managing with increased fiber, does have laxatives if needed. Feels like she has the tools to manage at this time. 3. Fatigue. Most likely was attributed to her worsening anemia, she did receive a transfusion with mild improvement, difficult to tell because she had developed nausea with her acyclovir. She is trying to pace her activity and balance that with being active. 4. Lower extremity edema. This is multifactorial, has improved, is wearing some support hose, has improved also with transfusion. Does appear currently controlled. 5. Anxiety. This is multifactorial, there has been many variables including worsening nausea with her acyclovir. Counseling provided to normalize her current response and grief and loss regarding living in dealing with a serious illness. 6. Herpes zoster. Patient has completed acyclovir, did not worsen, has lesion does appear to be drying, instructed to contact either myself or care team if worsens. 7. Weight loss. This most likely is related to her taste changes secondary to chemo and medications. Counseling provided regarding strategies to increase fluids with trying sharp tasting juices and flavors, as well as incorporate smoothies into her day to improve protein intake and calories. 8. Advanced care planning. Continue to explore goals of care, provide support for her and her family, will revisit advanced care planning in the context of pending restaging at next visit. 60 minutes with greater than 50% of this done in counseling regarding pain and symptom management, anxiety, and anticipatory guidance.
== END 2020-07-17 11:01 | disposition home or self-care (01) ==
LOC: PC 11:00
PROVIDERS: ATTEND Nurse Practitioner Adult Health
DX: Z51.5 Encounter for palliative care (principal); G89.3 Neoplasm related pain (acute) (chronic); C67.9 Malignant neoplasm of bladder, unspecified; C78.00 Secondary malignant neoplasm of unspecified lung; C77.9 Secondary and unspecified malignant neoplasm of lymph node, unspecified; C79.51 Secondary malignant neoplasm of bone; K59.03 Drug induced constipation; T40.2X5A Adverse effect of other opioids, initial encounter; D64.9 Anemia, unspecified; R53.83 Other fatigue; R60.0 Localized edema; F41.9 Anxiety disorder, unspecified; B02.8 Zoster with other complications; R63.4 Abnormal weight loss
CPT/HCPCS: 99350

== ENCOUNTER 2020-08-07 17:12 | Outpatient (CLI) | payer OTHER ==
--- NOTE | 2020-08-07 17:53 | CONSULTATION NOTE ---
Palliative Care Follow Up - Referral Referring Provider: Gladis SHOOK Time of Visit: 12-26 Referral setting: Home Referral Reason: Pain of neoplastic origin/Met Bladder CA/Nausea/right ear decub - Information Sources Records reviewed: Previous records reviewed History/Review of Systems obtained from: Patient, Family ( Seth) Exam limitations: No limitations - History of Present Illness Update Brief HPI Update: This is a micki 55-year-old woman who has right upper tract urothelial CA s/p radical nephrectomy, with bladder cancer reoccurrence to Spine, lung, and lymph nodes. She is currently being seen at [facility] and receiving gemcitabine and cisplatin. She is experiencing cumulative nausea and worsening fatigue, persistent anemia with history of one transfusion. She also has known L3 and L4 mets with involvement of the L4 nerve root causing significant symptoms, and has received stereotactic body radiation in 2 fractions completed about 2 months ago. Unfortunately she now presents with new L1 superior endplate compression fracture, which she suspects may have happened during a bone scan. She did have a CT scan on 07/28/2020 that showed mixed findings with interval improvement of pulmonary mets and right supraclavicular and retroperitoneal lymphadenopathy. Because of her recent fracture and concern for spinal cord impingement she did have an MRI to consider radiation, I do not have access to this. She is meeting with radiation oncology on Tuesday. Despite her new fracture, she has not had a significant increase in her pain medication use, she is on MS Contin 15 mg twice daily, using 7.5 mg for breakthrough pain averaging 2-3 doses in 24 hours. She would benefit from accepting a more aggressive pain regimen schedule but is wanting to balance with side effects/sedation. One of her biggest complaints has been persistent nausea, she has been using a ondansetron during the day, mixed with Compazine at night with mixed results. Her most recent issues also have to do with she is only able to position and sleep on her left side, she presents with a small decub on her left ear, her herpes zoster lesion on her lower lumbar spine has resolved, she does remain functional and ambulatory with her walker, but has had weight loss of 10 pounds since February, having difficulty with early satiety, persistent nausea, and taste changes. She also had a Ultrasound to r/o DVT on 07/31 and it was negative for DVT and shoule superficial venous thrombosis within the politeal fossa and proximal calf. Past Medical History: Urothelial CA S/P nephrectomy 03/05; bladder cancer 08/03 S/P TURBT, hypercholesteremia, asthma, GERD, claustrophobia, osteoarthritis, eczema, sections x2, Port-A-Cath placement Social History - Living Situation Living arrangement: At home Living Situation: With spouse/s.o. Support System: She is to Seth, they have been together 17 years though they have just last January. She has 2 sons who have been available and supportive, as well as 4 siblings who have been rotating to provide support. 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 Medications/Allergies - Medications Home Medications: Ambulatory Orders Medication Instructions Recorded Confirmed Albuterol Sulf [Ventolin Hfa 1 puffs PO DAILY PRN 08/30/18 07/17/20 Inhaler] EPINEPHrine [Epinephrine] 1 ml SQ ONCE PRN 08/30/18 07/17/20 Pravastatin [Pravachol] 10 mg PO DAILY 08/30/18 07/17/20 Ondansetron [Ondansetron Odt] 8 mg PO Q8HR PRN 05/30/20 07/17/20 Prochlorperazine Maleate 10 mg PO Q8HR PRN 05/30/20 07/17/20 [Compazine] Senna [Senokot] 2 tab PO BID PRN MDD titrate to 05/30/20 07/17/20 effect dexAMETHasone [Decadron] 4 mg PO BID MDD Scheduled with 05/30/20 07/17/20 chemo polyethylene glycoL 3350 [Miralax] 17 gm PO DAILY PRN 05/30/20 07/17/20 Cholecalciferol (Vitamin D3) 1,000 units PO DAILY 06/01/20 07/17/20 [Vitamin D3] Ibuprofen [Motrin] 400 mg PO Q6HR PRN 06/01/20 07/17/20 Morphine Ir [Ms Ir] 7.5 - 15 mg PO Q3HR PRN 07/03/20 07/17/20 Morphine ER [Morphine Sulfate ER] 15 mg PO BID MDD TID 07/17/20 07/17/20 - Allergies Allergies/Adverse Reactions: Allergies Allergy/AdvReac Type Severity Reaction Status Date / Time peanut Allergy Severe Anaphylaxis Verified 08/30/18 14:43 sulfamethoxazole Allergy Severe Anaphylaxis Verified 08/30/18 14:43 [From ] trimethoprim [From ] Allergy Severe Anaphylaxis Verified 08/30/18 14:43 adhesive AdvReac Rash Verified 06/01/20 17:56 oxycodone AdvReac Diaphoresis Verified 06/01/20 17:57 Review of Systems - Constitutional Constitutional: reports: Fatigue (worsening and persistent), Weakness, Weight loss (140 attributes to taste changes; early satiety). denies: Fever, Chills - Eyes Eyes: reports: Corrective lenses (reading) - Ears, Nose & Throat Ears, Nose & Throat: reports: Dry mouth (taste changes) - Cardiovascular Cardiovascular: reports: Edema (trace; wearing support hose), Decr. exercise tolerance - Respiratory Respiratory: denies: SOB at rest - Gastrointestinal Gastrointestinal: reports: Nausea (intermittent but persistent; using ondansetron AM and during day/compazine PM), Reflux/heartburn, Poor appetite, Early satiety, Other (taste changes). denies: Constipation (currently controlled) - Musculoskeletal Musculoskeletal: reports: Back pain, Muscle aches, Stiffness, Limited range of motion, Muscle weakness, Joint pain (right ankle/vaughan), Assistive devices (uses walker for ambulation) - Integumentary Integumentary: reports: Dryness, Hair changes (thinning) - Neurological Neurological: reports: Focal weakness (right leg), Numbness (worsening right side), Abnormal gait - Psychiatric Psychiatric: reports: Anxiety - Hematologic/Lymphatic Hematologic/Lymph: reports: Anemia. denies: Recurrent infections - All Other Systems All Other Systems: reports: Reviewed and negative Physical Exam - Vital Signs Temperature: 97.5 C Pulse Rate: 93 Respiratory Rate: 18 O2 Saturation: 98 (ra @ rest) Blood Pressure: 92/72 - Physical Exam General Appearance: positive: No acute distress, Alert Eyes Bilateral: positive: Normal inspection ENT: negative: No signs of dehydration (hypotensive; decrease intake) Neck: positive: Trachea midline Cardiovascular: positive: Regular rate & rhythm Respiratory: positive: No respiratory distress, Breath sounds nml. negative: Wheezes Abdomen: positive: Soft, Nml bowel sounds Skin: positive: Pallor, Dryness, Pressure wound (left ear; persitent pink area on out pinna) Extremities: positive: Pedal edema (improved; has support socks on). negative: Full ROM (limited on RLE) Neurologic/Psychiatric: positive: Oriented x3, Mood/affect nml, Other (appears fatigued) Palliative Care - POLST Patient has POLST: No POLST Status: Full Code Pain: Pain worsening, Location (lower back; radiating down right leg), Severity (8/10), Comment (relieved mod with medication; walking) Tiredness/Fatigue: Moderate (4-6) Drowsiness/Sedation: Mild (1-3) Nausea: Moderate (4-6), With vomiting Anorexia: Moderate (4-6), Weight loss Dyspnea: Mild (1-3) Depression: Mild (1-3) Anxiety: Moderate (4-6) Feelings of wellbeing/Perceived Quality of Life: Fair, Worsening, Comment (attributes to pain and nausea) Sleep: Variable sleep pattern Constipation: No Performance Status: Patient continues to struggle to be independent, she is ambulatory with her walker, is able to bathe, just needs to pace herself. She has been more sedentary, and limited in her walking secondary to her pain. She is spending more time in bed, she is most comfortable laying on her left side. - Palliative Care Discussion: Patient does appear somewhat fatigued, quality of life continues to be challenged with either persistent nausea or persistent fatigue, less able to do the things that bring her evens. She did have a significant change in condition with the fracture, suspect it happened with the bone scan. She is now been given options of surgery which most likely she is not a good candidate, awaiting outcome on radiation oncologist, or just pain control. They are appropriately concerned regarding the long-term implications particularly around impingement. Her understanding is she will transition to immunotherapy when she finishes with her next round of chemotherapy. She is trying to stay upbeat, but finding just the management of the day-to-day medications, side effects from chemotherapy, and fatigue wearing on her. Results - Lab Results Lab results reviewed: Yes Lab and Imaging Results: 08/05 labs potassium 3.9, sodium 132, BUN 15, creatinine 0.85, protein 6.8, albumin 3.5, bilirubin 0.3, alk phos 60 WBC 7.66, RBC 3.19, hemoglobin 8.7, hematocrit 28%, platelet count 259, neutrophils 4.85 Impression and Recommendations - Palliative Care Impression: This is a micki 55-year-old woman who presents with metastatic bladder cancer with mets to the L3/L4, pulmonary and guicho. Patient with recent L1 fracture, facing decision regarding radiation versus surgery versus pain management, with concern for worsening nerve impingement. Patient presents with worsening symptom burden attributed to cumulative effects of chemotherapy, exacerbation of her pain secondary to fracture, persistent fatigue, fluctuating nausea, and mild depressive symptoms. Palliative care providing support for pain and symptom management, psychosocial support, anticipatory guidance, and goals of care Recommendations/Counseling Done: 1. Pain of neoplastic origin. Patient's pain is multifactorial, though localized now with complication of L1 fracture, localized pain is attributed to L3/L4 lesions with epidural extension on right side. She continues with fairly persistent pain, worsening numbness, localized to right ankle/vaughan area. She is currently on MS extended 15 mg twice daily, supplementing with 7.5 mg of immediate release morphine. Suspect her dosing of Decadron with her chemotherapy often supplements her pain managment. I am concerned morphine is adding to her low-grade nausea, patient may benefit actually from transitioning to morphine to fentanyl, but awaiting to see if will be receiving further radiation. Also introduced to looking at a multifactorial approach with in itiating pregabalin again. She had felt this made her "drool" at bedtime, though now is attributing this to the Compazine. Patient reluctant to make changes, will continue to revisit has pain only moderately controlled, and does have room for improvement. Counseling provided regarding questions they have regarding implications of radiation therapy, these were talked/written out. 2. Persistent nausea. This is multifactorial, does seem to be cumulative with her radiation, though the suspect also may be added to with her morphine. Patient is using ondansetron, encouraged to continue on a regular scheduled basis, would recommend giving her description of worsening nausea with empty stomach, needing to eat every 2-3 hours, would add omeprazole 20 mg daily. May consider olanzapine with her next chemotherapy round, as she did have some intermittent nausea post chemo. 3. Weight loss. Patient is having difficulty with anorexia related to early satiety, taste changes, and nausea. Counseling provided regarding on strategies to address, small frequent feedings, and food types/tastes to try. 4. Hypotension. I suspect this is multifactorial, patient does present with concerns for decreased fluid intake and persistent anemia. Patient is pending labs this Tuesday, have encouraged and counseling provided regarding strategies to increase fluid intake. 5. Depression. Patient presents with fatigue and anxiety regarding most recent developments, she is hoping for some improvement after she finishes chemotherapy, does understand the seriousness of her illness but is trying to be pragmatic and take this 1 step at a time. Counseling provided to normalize current feelings of concern, psychosocial support provided, as well as addressing caregiver concerns and fatigue 60 minutes with greater than 50% of this and in counseling regarding symptom management and anticipatory guidance.
== END 2020-08-07 17:13 | disposition home or self-care (01) ==
LOC: PC 17:12
PROVIDERS: ATTEND Nurse Practitioner Adult Health
DX: Z51.5 Encounter for palliative care (principal); G89.3 Neoplasm related pain (acute) (chronic); M48.56XA Collapsed vertebra, not elsewhere classified, lumbar region, initial encounter for fracture; M54.5 Low back pain; M25.571 Pain in right ankle and joints of right foot; M79.661 Pain in right lower leg; R11.0 Nausea; R68.81 Early satiety; R63.4 Abnormal weight loss; I95.9 Hypotension, unspecified; F32.9 Major depressive disorder, single episode, unspecified; F41.9 Anxiety disorder, unspecified; R53.83 Other fatigue; C68.8 Malignant neoplasm of overlapping sites of urinary organs; C79.51 Secondary malignant neoplasm of bone; C78.00 Secondary malignant neoplasm of unspecified lung; C77.0 Secondary and unspecified malignant neoplasm of lymph nodes of head, face and neck; C77.2 Secondary and unspecified malignant neoplasm of intra-abdominal lymph nodes; Z79.899 Other long term (current) drug therapy
CPT/HCPCS: 99350

== ENCOUNTER 2020-08-28 11:30 | Outpatient (CLI) | payer OTHER ==
--- NOTE | 2020-08-28 17:13 | CONSULTATION NOTE ---
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 She is currently being seen at [facility] receiving gemcitabine and [facility], she is still experiencing cumulative nausea, worsening fatigue, as starting to feel emotionally taxed. She has had ongoing weight loss, she originally started at about 150, is down to 136, this is multifactorial as far as her anorexia, influenced by both her nausea, taste changes, early satiety, and food aversions. She has 1 more cycle of her chemotherapy, and then will be transition to immunotherapy Keytruda. Patient's pain which is attributed to her L1 endplate compression fracture, and mets to L3 and L4 with involvement of L4 nerve root continues to be symptomatic, but she is managing much better with her MS Contin 15 mg twice daily, and is only needing MSIR 7.5 mg about 2 times a day. She is only able to sleep on her left side, and continues with a pressure sore on her left Pinna, though has found a pillow that is decreasing the pressure. Though her ultrasound did rule out DVT, and showed only superficial venous thrombosis, because of her cancer history they did start her on Lovenox with transition to Xarelto 10 mg daily. She is somewhat disappointed with this, but does recognize and understand the rationale. Past Medical History: Urothelial CA s/p nephrectomy 03/05; bladder cancer 08/03 as/P TURBT, hypercholesteremia, asthma, GERD, claustrophobia, osteoarthritis, eczema, section x2, Port-A-Cath placement Social History - Living Situation Living arrangement: At home Living Situation: With spouse/s.o. Support System: Patient lives with her micki Seth, they have been together 17 years old just last January. She has 2 sons who are available and supportive, her 4 siblings have been rotating around to provide support. 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 The endpoint of this is at the end of the month and should free other energy and direction up for them. She is spending most of her time in energy when she has a little bit of relief, attending to these tasks Medications/Allergies - Medications Home Medications: Ambulatory Orders Medication Instructions Recorded Confirmed Albuterol Sulf [Ventolin Hfa 1 puffs PO DAILY PRN 08/30/18 08/29/20 Inhaler] EPINEPHrine [Epinephrine] 1 ml SQ ONCE PRN 08/30/18 08/29/20 Pravastatin [Pravachol] 10 mg PO DAILY 08/30/18 08/29/20 Ondansetron [Ondansetron Odt] 8 mg PO Q8HR PRN 05/30/20 08/29/20 Prochlorperazine Maleate 10 mg PO Q8HR PRN 05/30/20 08/29/20 [Compazine] Senna [Senokot] 2 tab PO BID PRN MDD titrate to 05/30/20 08/29/20 effect dexAMETHasone [Decadron] 4 mg PO BID MDD Scheduled with 05/30/20 08/29/20 chemo polyethylene glycoL 3350 [Miralax] 17 gm PO DAILY PRN 05/30/20 08/29/20 Cholecalciferol (Vitamin D3) 1,000 units PO DAILY 06/01/20 08/29/20 [Vitamin D3] Ibuprofen [Motrin] 400 mg PO Q6HR PRN 06/01/20 08/29/20 Morphine Ir [Ms Ir] 7.5 - 15 mg PO Q3HR PRN 07/03/20 08/29/20 Morphine ER [Morphine Sulfate ER] 15 mg PO BID MDD TID 07/17/20 08/29/20 OLANZapine [Zyprexa Zydis] 5 mg PO QPM MDD 4 nights with chemo 08/29/20 08/29/20 Omeprazole [PriLOSEC] 20 mg PO DAILY 08/29/20 08/29/20 Rivaroxaban [Xarelto] 10 mg PO DAILY MDD after complete 08/29/20 08/29/20 lovenox - Allergies Allergies/Adverse Reactions: Allergies Allergy/AdvReac Type Severity Reaction Status Date / Time peanut Allergy Severe Anaphylaxis Verified 08/30/18 14:43 sulfamethoxazole Allergy Severe Anaphylaxis Verified 08/30/18 14:43 [From ] trimethoprim [From ] Allergy Severe Anaphylaxis Verified 08/30/18 14:43 adhesive AdvReac Rash Verified 06/01/20 17:56 oxycodone AdvReac Diaphoresis Verified 06/01/20 17:57 Review of Systems - Constitutional Constitutional: reports: Fatigue (worsening and persistent), Weakness, Weight loss (136 attributes to taste changes; early satiety 4 pounds since last seen/20 pounds since DX). denies: Fever, Chills - Eyes Eyes: reports: Corrective lenses (reading) - Ears, Nose & Throat Ears, Nose & Throat: reports: Dry mouth (taste changes). denies: Mouth lesions - Cardiovascular Cardiovascular: reports: Decr. exercise tolerance. denies: Edema (resolved/ wearing support hose) - Respiratory Respiratory: reports: SOB with exertion. denies: Cough, SOB at rest - Gastrointestinal Gastrointestinal: reports: Nausea (intermittent but persistent; using ondansetron/compazine/CBD gummies;), Vomiting (episodic), Poor appetite, Early satiety, Other (taste changes). denies: Constipation (currently controlled), Reflux/heartburn (improved with omeprazole) - Musculoskeletal Musculoskeletal: reports: Back pain, Muscle aches, Stiffness, Limited range of motion, Muscle weakness, Joint pain (right ankle/vaughan), Assistive devices (uses walker for ambulation) - Integumentary Integumentary: reports: Dryness, Hair changes (thinning) - Neurological Neurological: reports: Focal weakness (right leg), Numbness (worsening right side), Abnormal gait - Psychiatric Psychiatric: reports: Anxiety - Hematologic/Lymphatic Hematologic/Lymph: reports: Anemia. denies: Recurrent infections - All Other Systems All Other Systems: reports: Reviewed and negative Physical Exam - Vital Signs Temperature: 97.0 C Pulse Rate: 82 Respiratory Rate: 18 O2 Saturation: 99 (ra @ rest) Blood Pressure: 118/62 - Physical Exam General Appearance: positive: Alert, Mild distress (managing nausea; fluctuating but persistent) Eyes Bilateral: positive: Normal inspection ENT: negative: No signs of dehydration (hypotensive; decrease intake) Neck: positive: Trachea midline Cardiovascular: positive: Regular rate & rhythm Respiratory: positive: No respiratory distress, Breath sounds nml. negative: Wheezes Abdomen: positive: Soft, Nml bowel sounds Skin: positive: Pallor, Dryness, Pressure wound (left ear; persitent pink area on out pinna; small less than 1 cm pressure ulcer) Extremities: negative: Full ROM (limited on RLE), Pedal edema (resolved; has support socks on) Neurologic/Psychiatric: positive: Oriented x3, Mood/affect nml, Other (appears fatigued) Palliative Care - POLST Patient has POLST: No POLST Status: Full Code Pain: Pain improved, Location (lower back; right leg/ankle foot with numbness) Tiredness/Fatigue: Severe (7-10) Drowsiness/Sedation: Moderate (4-6) Nausea: Severe (7-10) Anorexia: Moderate (4-6), Weight loss Dyspnea: Mild (1-3) Depression: Mild (1-3) Anxiety: Mild (1-3) Feelings of wellbeing/Perceived Quality of Life: Fair, Worsening, Comment (attributes to nausea/cumulative effects of treatment) Sleep: Sleep improved, Variable sleep pattern Constipation: No Performance Status: Patient has maintained her functional status, she is actually able to walk a little bit more, still needs frequent rests because of her activity intolerance. She does find the trips down to you have tab quite exhausting, continues to work on ways to make this more tolerable. She is able to manage her ADLs with some assistance, is still has difficulty reaching her feet. 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 She has worked since she was a very young girl, and finding this somewhat daunting in this transition point. She continues to stay pretty much in the present, has not looked much past the end of this treatment cycle. Reflective of their journey and this together, and support they are receiving as well as how her sons are doing. Results - Lab Results Lab results reviewed: Yes Lab and Imaging Results: 08/26, sodium 134, potassium 3.9, glucose 143, BUN 13, creatinine 0.75, total protein 6.4, albumin 3.5, bilirubin 0.2, calcium 8.6, alk phos 53, magnesium 1.5, did receive infusions. WBC 4.34, hemoglobin 8.2, hematocrit 26%, neutrophils 2.15 Impression and Recommendations - Palliative Care Impression: This is a micki 55-year-old woman who has metastatic bladder cancer with mets to the L3/L4, pulmonary and guicho mets. Patient with recent L1 fracture, which does appear to be healing, is improving as far as her pain management. Patient has had more persistent nausea, with weight loss, and mild depressive symptoms. Palliative care providing support for pain and symptom management, psychosocial support anticipatory guidance and continued development of goals of care Recommendations/Counseling Done: 1. Pain of neoplastic origin. Patient's pain is multifactorial, though localized now with a complication of L1 fracture, and L3/L4 lesions with epidural extension on right side. She is doing actually fairly well with her MS extended 15 mg twice daily supplementing with 7.5 mg of immediate release morphine and is only averaging about 2 doses in 24 hours. Patient is satisfied with her current regimen. 2. Persistent nausea. This does seem multifactorial. Has worsened with vomiting episodes with cumulative effects of her chemotherapy. She is alternating ondansetron, Compazine, and CBD. She does feel the addition of omeprazole has helped some. They have added in addition to the Decadron, olanzapine around the time of late effect of the chemotherapy. 3. Weight loss. Patient continued having difficulty with anorexia related to early satiety, taste changes, and nausea. Reviewed again strategies to address ways to increase her calorie counts, and need to continue to focus on adequate fluid intake. 4. Depression. Patient presents with fatigue and anxiety, she is coming to the end of her last chemotherapy session, with goal to transition to immunotherapy. She is also experiencing loss and change in bowels, as well as change in her work situation. 5. Advance care planning. 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 Patient is coping as best on focusing on the here and now, being pragmatic, but does find it helpful to reflect on her journey and as a couple process their experiences. 60 minutes with greater than 50% of this done in counseling regarding pain and symptom management, psychosocial support and anticipatory guidance.
== END 2020-08-28 11:31 | disposition home or self-care (01) ==
LOC: PC 11:30
PROVIDERS: ATTEND Nurse Practitioner Adult Health
DX: Z51.5 Encounter for palliative care (principal); C34.90 Malignant neoplasm of unspecified part of unspecified bronchus or lung; G89.3 Neoplasm related pain (acute) (chronic); C77.9 Secondary and unspecified malignant neoplasm of lymph node, unspecified; C79.51 Secondary malignant neoplasm of bone; Z79.899 Other long term (current) drug therapy; R11.10 Vomiting, unspecified; T45.1X5A Adverse effect of antineoplastic and immunosuppressive drugs, initial encounter; R63.4 Abnormal weight loss; F32.9 Major depressive disorder, single episode, unspecified
CPT/HCPCS: 99350

== ENCOUNTER 2020-09-18 11:00 | Outpatient (CLI) | payer OTHER ==
--- NOTE | 2020-09-18 15:28 | CONSULTATION NOTE ---
Palliative Care Follow Up - Referral Referring Provider: Gladis SHOOK Time of Visit: 12-26 Referral setting: Home Referral Reason: Pain of neoplastic origin/Nausea&Vomiting/High grade Urothelial CA - Information Sources Records reviewed: Previous records reviewed History/Review of Systems obtained from: Patient, Family ( Seth) Exam limitations: No limitations - History of Present Illness Update Brief HPI Update: This is a micki 55-year-old woman with upper right tract urethral CA s/p radical nephrectomy on 03/01/2019 and S/B TURBT S for bladder cancer with disease recurrence with mets to the spine, lung, and lymph nodes. She has just finished her sixth cycle of gemcitabine/[place], and is experiencing significant nausea and vomiting, presents with mild dehydration today, and persistent anorexia. Patient has lost more weight down to 135, she is somewhat discouraged with the cumulative toxicities and persistent vomiting and is awaiting pending scans for restaging with hope to move on to immunotherapy. Patient was unable to tolerate olanzapine as experienced restless legs and found this quite distressing, worse than the vomiting. They have been challenged to stay on top of her other nausea meds, as well as fluids, unfortunately the vomiting does exacerbate her back pain. I did recommend allowing me to make arrangements for fluids, patient wanted to try to regain ground with more aggressive oral hydration but in agreement if unable to improve next 24 hours would allow me to order a liter of fluid nearby. Patient's pain has actually improved, has been managed with the MS Contin 15 mg twice a day, has not needed any immediate release until yesterday, 1 time with the pain most likely exacerbated by her vomiting. Her lower back pain has improved, she does have fluctuating intermittent bilateral hip pain, but overall has found it tolerable. She is both physically and emotionally exhausted, relieved to be passed her chemotherapy cycles. 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 She does admit having most likely pushed herself too much with this task/move. Past Medical History: Urethral CA s/p nephrectomy 03/05; bladder cancer 08/03 s/p TURBT, hypercholesteremia, asthma, GERD, claustrophobia, osteoarthritis, eczema, section x2, Port-A-Cath placement Social History - Living Situation Living arrangement: At home Living Situation: With spouse/s.o. Support System: Patient lives with her micki Seth who is quite attentive and concerned. They have been together 17 years just this last January. She has 2 sons who are available and supportive, but concerned to see her not vaccinated. 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 She has been mostly concentrating her efforts on this and her chemotherapy schedule and has not much time to reflect on her current situation. Medications/Allergies - Medications Home Medications: Ambulatory Orders Medication Instructions Recorded Confirmed Albuterol Sulf [Ventolin Hfa 1 puffs PO DAILY PRN 08/30/18 09/19/20 Inhaler] EPINEPHrine [Epinephrine] 1 ml SQ ONCE PRN 08/30/18 09/19/20 Pravastatin [Pravachol] 10 mg PO DAILY 08/30/18 09/19/20 Ondansetron [Ondansetron Odt] 8 mg PO Q8HR PRN 05/30/20 09/19/20 Prochlorperazine Maleate 10 mg PO Q8HR PRN 05/30/20 09/19/20 [Compazine] Senna [Senokot] 2 tab PO DAILY PRN MDD titrate to 05/30/20 09/19/20 effect polyethylene glycoL 3350 [Miralax] 17 gm PO DAILY PRN 05/30/20 09/19/20 Cholecalciferol (Vitamin D3) 1,000 units PO DAILY 06/01/20 09/19/20 [Vitamin D3] Morphine Ir [Ms Ir] 7.5 - 15 mg PO Q3HR PRN 07/03/20 09/19/20 Morphine ER [Morphine Sulfate ER] 15 mg PO BID MDD TID 07/17/20 09/19/20 Omeprazole [PriLOSEC] 20 mg PO DAILY 08/29/20 09/19/20 Rivaroxaban [Xarelto] 10 mg PO DAILY MDD after complete 08/29/20 09/19/20 lovenox - Allergies Allergies/Adverse Reactions: Allergies Allergy/AdvReac Type Severity Reaction Status Date / Time peanut Allergy Severe Anaphylaxis Verified 08/30/18 14:43 sulfamethoxazole Allergy Severe Anaphylaxis Verified 08/30/18 14:43 [From ] trimethoprim [From ] Allergy Severe Anaphylaxis Verified 08/30/18 14:43 adhesive AdvReac Rash Verified 06/01/20 17:56 oxycodone AdvReac Diaphoresis Verified 06/01/20 17:57 Review of Systems - Constitutional Constitutional: reports: Fatigue, Weakness, Weight loss (135). denies: Fever, Chills - Eyes Eyes: reports: Corrective lenses (reading) - Ears, Nose & Throat Ears, Nose & Throat: reports: Dry mouth (taste changes), Other (taste changes). denies: Mouth lesions - Cardiovascular Cardiovascular: reports: Decr. exercise tolerance. denies: Edema (resolved/ wearing support hose) - Respiratory Respiratory: reports: SOB with exertion. denies: Cough, SOB at rest - Gastrointestinal Gastrointestinal: reports: Nausea (had bad experience with olanzapine with RLS not used after one night; has been not consistent with compazine/ondansetron), Vomiting (increased frequency this round; difficulty keeping things down; particularly breakfast), Poor appetite, Early satiety, Other (taste changes). denies: Constipation (currently controlled), Reflux/heartburn (improved with omeprazole) - Musculoskeletal Musculoskeletal: reports: Back pain, Muscle aches, Stiffness, Limited range of motion, Muscle weakness, Joint pain (bilat hip oain), Assistive devices (uses walker for ambulation) - Integumentary Integumentary: reports: Dryness, Hair changes (thinning) - Neurological Neurological: reports: Focal weakness (right leg), Numbness (worsening right side), Abnormal gait - Hematologic/Lymphatic Hematologic/Lymph: reports: Anemia (required another transfusion; felt much better for about 24 hours). denies: Recurrent infections - All Other Systems All Other Systems: reports: Reviewed and negative Physical Exam - Vital Signs Temperature: 97.3 C Pulse Rate: 84 Respiratory Rate: 16 O2 Saturation: 98 (ra @ rest) Blood Pressure: 92/52 (sitting) - Physical Exam General Appearance: positive: Alert, Mild distress (with n/v and cumulative toxicities) Eyes Bilateral: positive: Normal inspection ENT: negative: No signs of dehydration (hypotensive; decrease intake additionally with vomiting) Neck: positive: Trachea midline Cardiovascular: positive: Regular rate & rhythm Respiratory: positive: No respiratory distress, Breath sounds nml. negative: Wheezes Abdomen: positive: Soft, Nml bowel sounds Skin: positive: Pallor, Dryness Extremities: negative: Full ROM (limited on RLE), Pedal edema (resolved; has support socks on) Neurologic/Psychiatric: positive: Oriented x3, Mood/affect nml, Other (appears fatigued) Palliative Care - POLST Patient has POLST: No POLST Status: Full Code Pain: Pain improved, Location (back; taking less IR), Severity (mild-mod tolerable; worse with vomiting) Tiredness/Fatigue: Severe (7-10) Drowsiness/Sedation: Mild (1-3) Nausea: Severe (7-10), With vomiting Anorexia: Severe (7-10), Weight loss Dyspnea: None Depression: Mild (1-3) Anxiety: Mild (1-3) Feelings of wellbeing/Perceived Quality of Life: Fair, Worsening (hoping for improvement now finished with chemotherapy) Sleep: Variable sleep pattern (less restful than previously) Constipation: No Performance Status: Patient does need help sitting to standing, related to lower back pain and generalized leg weakness. Now that she is done with office work, she is trying to initiate her walking again. She did go for little walk yesterday, and is hoping to continue to build on this. - Palliative Care Discussion: Johanne has found this last round of chemotherapy and with the n/v very exhausting superimposed on her closing her office, and moving out. She is hopeful in the context of needing to do her follow-up scans, that she will feel better and is expecting to transition to immunotherapy. She really has had very little time to process her journey with the intensity of her treatment regimen and personal circumstances. Discussion on reflection of this looking to set priorities and visit goals of care. Acknowledgment of the difficulty for her to be witness to her suffering, admires her inner strength. Results - Lab Results Lab results reviewed: Yes Lab and Imaging Results: Sodium 3.5, BUN 16 total protein 6.6 albumin 3.8 WBC 3.31 hemoglobin 8.9 hematocrit 28 platelets 280 magnesium 1.5 she will start magnesium supplement. 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 Patient with recent L1 fracture does appear to be healing with improved pain management. Patient now having significant nausea and vomiting with weight loss, has just completed last cycle of carboplatinum/gemcitabine and is hopeful for improvement. Palliative care providing support for pain and symptom management, psychosocial support, anticipatory guidance and continued development of goals of care. Recommendations/Counseling Done: 1. Nausea vomiting. This does seem multifactorial, most likely attributed again to her cumulative effects of chemotherapy. She is having difficulty tracking her antiemetics on any regular basis. She was unable to take the olanzapine this time secondary RLS, is starting to feel little bit better, but now presents with dehydration. Counseling provided regarding scheduling Compazine every 8 hours alternating with ondansetron in between and stay regimented for at least 48 hours until improved. Patient reports just prior to treatment, was doing fairly well, as concern had been morphine was adding to the risk. We will continue to monitor. 2. Pain of neoplastic origin. Patient's pain is multifactorial, most persistent has been the L1 fracture which is starting to heal with improvement of pain. She is not need much for breakthrough pain, she is doing better with positioning, distraction, and feels her current regimen is acceptable. Unfortunately with the vomiting this exacerbated her upper thoracic pain. 3. Weight loss. Patient having difficulty with anorexia related to early satiety, taste changes, and now nausea and vomiting. Counseling provided on s trategies for increasing calorie counts and continue to focus on adequate fluid intake. 4. Dehydration. Patient presents with low blood pressure, recommended she go in for fluids, patient is quite resistant to reentering healthcare system. Counseling provided and strategies for 3 to 4 ounces every hour around the clock while awake if not improved by tomorrow, agreed would go in. 5. Depression. Patient presents with fatigue and anxiety and somewhat level of exhaustion between treatment and closing her business She is looking forward to transitioning immunotherapy, though does have some anxiety with pending scans. 6. Advanced care planning. Continue to build rapport, looking at short-term goals, patient's way of coping is focusing on the here and now, will await findings on scans to introduce looking at further advanced care planning into the future. 60 minutes with greater than 50% of this done in counseling regarding symptom management, psychosocial support, anticipatory guidance.
== END 2020-09-18 11:01 | disposition home or self-care (01) ==
LOC: PC 11:00
PROVIDERS: ATTEND Nurse Practitioner Adult Health
DX: Z51.5 Encounter for palliative care (principal); R11.2 Nausea with vomiting, unspecified; T45.1X5A Adverse effect of antineoplastic and immunosuppressive drugs, initial encounter; G89.3 Neoplasm related pain (acute) (chronic); M48.56XD Collapsed vertebra, not elsewhere classified, lumbar region, subsequent encounter for fracture with routine healing; M25.552 Pain in left hip; M25.551 Pain in right hip; M54.5 Low back pain; C68.0 Malignant neoplasm of urethra; C67.9 Malignant neoplasm of bladder, unspecified; C78.00 Secondary malignant neoplasm of unspecified lung; C77.9 Secondary and unspecified malignant neoplasm of lymph node, unspecified; C79.51 Secondary malignant neoplasm of bone; R63.4 Abnormal weight loss; E86.0 Dehydration; I95.9 Hypotension, unspecified; R53.83 Other fatigue; F41.9 Anxiety disorder, unspecified; Z79.899 Other long term (current) drug therapy; Z79.891 Long term (current) use of opiate analgesic
CPT/HCPCS: 99350

== ENCOUNTER 2020-10-02 11:00 | Outpatient (CLI) | payer OTHER ==
--- NOTE | 2020-10-02 18:53 | CONSULTATION NOTE ---
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 She has completed her 6 cycles of gemcitabine and cis-[place] which she experienced worsening toxicities resulting in weight loss down to 133 pounds, a total of 17 pounds. She had been experiencing persistent nausea and vomiting, she is feeling a little bit better overall but continues to have significant nausea without medications. She is using the ondansetron alternating with the prochlorperazine about 4 times a day. She is eating smaller amounts, has still had some intermittent vomiting but this is improving overall. Her last chemo was 09/23. She is hoping for continued improvement, she did have her restaging scans, with the oncologist what she heard was "very happy", and will be starting avelumab every 2 weeks. She is hopeful for both continuing quality of life, and quantity of life. Her most recent scans show interval decrease in the size of her supra and infra diaphragmatic lymphadenopathy and decrease in the size of her scattered bilateral pulmonary nodules. No change in her L3 and L4 vertebral body mass but with retropulsion of L5 posterior superior aspect kind spinal cord narrowing. She is due for an MRI to further evaluate this. She does have a known L1 superior endplate night compression fracture. Her bone scan also shows her left anterior sixth rib intake as well has increased uptake involving shoulders, sternoclavicular joints, knees, ankles/feet unchanged and most consistent with degenerative changes. Patient continues with lower back pain, as well as into the right outer leg and foot, intermittent swelling and tingling. Is sensitive to touch. She is though managed on morphine 15 mg twice daily, she rates her pain at a 3 out of 10. This is acceptable to her, she is wanting to balance her sedation with her pain relief. She does have better pain relief with laying down. Worse pain with weightbearing and ambulation. She does have multiple joint pain that fluctuates, but this is improved as well. 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 Support System: Patient lives with her micki Seth, who is quite attentive and concerned. They have been together 17 years but just this last January. She has 2 sons are available and supportive but concerned as far as seeing her as they are not vaccinated. Her 4 siblings have been rotating to give support, her friend Ynes who is a pharmacist is here today. 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 This has been a huge undertaking in the middle of treatment. Medications/Allergies - Medications Home Medications: Ambulatory Orders Medication Instructions Recorded Confirmed Albuterol Sulf [Ventolin Hfa 1 puffs PO DAILY PRN 08/30/18 09/19/20 Inhaler] EPINEPHrine [Epinephrine] 1 ml SQ ONCE PRN 08/30/18 09/19/20 Pravastatin [Pravachol] 10 mg PO DAILY 08/30/18 09/19/20 Ondansetron [Ondansetron Odt] 8 mg PO Q8HR PRN 05/30/20 09/19/20 Prochlorperazine Maleate 10 mg PO Q8HR PRN 05/30/20 09/19/20 [Compazine] Senna [Senokot] 2 tab PO DAILY PRN MDD titrate to 05/30/20 09/19/20 effect polyethylene glycoL 3350 [Miralax] 17 gm PO DAILY PRN 05/30/20 09/19/20 Cholecalciferol (Vitamin D3) 1,000 units PO DAILY 06/01/20 09/19/20 [Vitamin D3] Morphine Ir [Ms Ir] 7.5 - 15 mg PO Q3HR PRN 07/03/20 09/19/20 Morphine ER [Morphine Sulfate ER] 15 mg PO BID MDD TID 07/17/20 09/19/20 Omeprazole [PriLOSEC] 20 mg PO DAILY 08/29/20 09/19/20 Rivaroxaban [Xarelto] 10 mg PO DAILY MDD after complete 08/29/20 09/19/20 lovenox - Allergies Allergies/Adverse Reactions: Allergies Allergy/AdvReac Type Severity Reaction Status Date / Time peanut Allergy Severe Anaphylaxis Verified 08/30/18 14:43 sulfamethoxazole Allergy Severe Anaphylaxis Verified 08/30/18 14:43 [From ] trimethoprim [From ] Allergy Severe Anaphylaxis Verified 08/30/18 14:43 adhesive AdvReac Rash Verified 06/01/20 17:56 oxycodone AdvReac Diaphoresis Verified 06/01/20 17:57 Review of Systems - Constitutional Constitutional: reports: Fatigue, Weakness, Weight loss (133). denies: Fever, Chills - Eyes Eyes: reports: Corrective lenses (reading) - Ears, Nose & Throat Ears, Nose & Throat: reports: Dry mouth (taste changes improved some). denies: Mouth lesions - Cardiovascular Cardiovascular: reports: Decr. exercise tolerance. denies: Edema (resolved/ wearing support hose) - Respiratory Respiratory: reports: SOB with exertion. denies: Cough, SOB at rest - Gastrointestinal Gastrointestinal: reports: Nausea (has continued to have persistent nausea, better if taking medications), Vomiting (starting to decrease in frequency every few days), Poor appetite, Early satiety. denies: Constipation (currently controlled), Reflux/heartburn (improved with omeprazole) - Musculoskeletal Musculoskeletal: reports: Back pain, Muscle aches, Stiffness, Limited range of motion, Muscle weakness, Assistive devices (uses walker for ambulation; offloads back with increased discomfort upper extremities) - Integumentary Integumentary: reports: Dryness, Hair changes (thinning) - Neurological Neurological: reports: Focal weakness (right leg), Numbness (worsening right side), Abnormal gait - Hematologic/Lymphatic Hematologic/Lymph: reports: Anemia (improved 8.8). denies: Recurrent infections - All Other Systems All Other Systems: reports: Reviewed and negative Physical Exam - Vital Signs Pulse Rate: 81 Respiratory Rate: 18 O2 Saturation: 98 (ra @ rest) Blood Pressure: 112/72 - Physical Exam General Appearance: positive: Alert, Mild distress (with n/v and cumulative toxicities; feeling better overall but still exhausted) Eyes Bilateral: positive: Normal inspection ENT: negative: No signs of dehydration (hypotensive; decrease intake additionally with vomiting) Neck: positive: Trachea midline Cardiovascular: positive: Regular rate & rhythm Respiratory: positive: No respiratory distress, Breath sounds nml. negative: Wheezes Abdomen: positive: Soft, Nml bowel sounds Skin: positive: Pallor, Dryness Extremities: negative: Full ROM (limited on RLE), Pedal edema (resolved; has support socks on) Neurologic/Psychiatric: positive: Oriented x3, Mood/affect nml, Other (appears fatigued) Palliative Care - POLST Patient has POLST: No POLST Status: Full Code Pain: Pain improved, Location (see HPI), Severity (/10) Tiredness/Fatigue: Moderate (4-6) Drowsiness/Sedation: Moderate (4-6) Nausea: Moderate (4-6), With vomiting Anorexia: Moderate (4-6) Dyspnea: None Depression: None Anxiety: Mild (1-3) Feelings of wellbeing/Perceived Quality of Life: Fair, Acceptable, Improved Sleep: Sleep improved Constipation: No Performance Status: Patient more sedentary than her baseline, does spend time in bed relieving pressure pain as well as related to fluctuating nausea. She is able to shower with some assistance with lower extremity dressing. She has been trying to walk a little bit more, discussed ways to integrate more activity secondary to deconditioning. - Palliative Care Discussion: Patient completed her "acute" to chemotherapy regimen and moving on to maintenance of avelulmab. She does acknowledge this is been a difficult part of the journey, though this is been her focus to get through this. She is now somewhat left with the "what next" and resetting of new goals. Did feel some what more normal, the does have limitations given her bone mets and impact on mobility. She does understand the seriousness of her illness, though has chosen to focus on the here and now. She does have 1 more MRI for her back to see if further radiation or intervention needed, she has seen the pain clinic provider, at this time we will continue with palliative care given she is managing well and not wanting to make any changes. Her good friend Ynes is present, just reflective of how much she is gone through in the courage that she has demonstrated. Seth is not present today, will revisit advanced care planning after next round of scans and when he is present. Results - Lab Results Lab results reviewed: Yes Lab and Imaging Results: CMP within normal limits, protein 16.8, albumin 4.1 hemoglobin is increased to 8.8, hematocrit 28%, platelets 191 Impression and Recommendations - Palliative Care Impression: This is a micki 55-year-old woman with metastatic year [place] cancer with mets to the L4/L4, lymphadenopathy, and pulmonary nodule mets. Patient's pain continues to improve, though patient still having persistent nausea, intermittent vomiting, and sustained weight loss. She is currently completed her last cycle of carboplatinum/gemcitabine and will be moving on to maintenance avelumab. Palliative care continue provide support for pain and symptom management, psychosocial support and anticipatory guidance. Recommendations/Counseling Done: 1. Nausea/vomiting. This appears again to be multifactorial, has improved somewhat but remains persistent. She has had her friend helping her track her antiemetics on a regular basis which has improved, she is scheduling her ondansetron and Compazine and intermittent "Gummies". She has been able to eat and drink better, is hopeful this will continue to improve. Remain concerned still may be contributed by the morphine adding to her risk, will continue to monitor. 2. Pain of neoplastic origin. Patient's pain is multifactorial, most persistent has been the L1 fracture which is improving with healing. She has not needed much breakthrough pain, doing better with positioning distraction feels her current regimen is acceptable and has not wanted to make any changes. We did discuss in the context of possible rotation if nausea remains persistent, may be able to tolerate fentanyl as it is a small adhesive. 3. Weight loss. Patient has been having difficulty with anorexia related to early satiety, taste changes, and nausea and vomiting. She has been doing better with frequent feedings, and attentive support. She does continue to integrate strategies to remain hydrated. 4. Depression. Patient presents with fatigue and level of exhaustion between treatment and managing her nausea and vomiting. She is looking forward to transitioning immunotherapy, and hoping to set some new short-term goals. Counseling provided regarding normalizing current feelings and adaptation. 5. Advanced care planning. Continue to build rapport, will revisit short-term goals, patient's coping is focusing on the here and now, will continue to explore long-term goals in the context advanced care planning when have joint visit again with .Patient has good psychosocial support as well as practical support. 60 minutes with greater than 50% of this done in counseling regarding pain and symptom management, psychosocial support, and anticipatory guidance.
== END 2020-10-02 11:01 | disposition home or self-care (01) ==
LOC: PC 11:00
PROVIDERS: ATTEND Nurse Practitioner Adult Health
DX: Z51.5 Encounter for palliative care (principal); C68.0 Malignant neoplasm of urethra; C78.00 Secondary malignant neoplasm of unspecified lung; C77.9 Secondary and unspecified malignant neoplasm of lymph node, unspecified; C79.51 Secondary malignant neoplasm of bone; G89.3 Neoplasm related pain (acute) (chronic); R11.2 Nausea with vomiting, unspecified; R63.4 Abnormal weight loss; Z92.3 Personal history of irradiation; R53.83 Other fatigue; R53.1 Weakness; R06.00 Dyspnea, unspecified; R63.0 Anorexia; D64.9 Anemia, unspecified; F32.9 Major depressive disorder, single episode, unspecified
CPT/HCPCS: 99350

== ENCOUNTER 2020-10-23 11:00 | Outpatient (CLI) | payer OTHER ==
--- NOTE | 2020-10-23 21:37 | CONSULTATION NOTE ---
Palliative Care Follow Up - Referral Referring Provider: Jenniffer SHOOK Time of Visit: 12-26 Referral setting: Home Referral Reason: Pain of neoplastic origin/Generalized Weakness/Met High grade urothelial CA - Information Sources Records reviewed: Previous records reviewed History/Review of Systems obtained from: Patient, Family ( Seth) Exam limitations: No limitations - History of Present Illness Update Brief HPI Update: This is a micki 55-year-old woman with known right upper tract urothelial CA s /p radical nephrectomy on 02/2019 and s/p TURBT for bladder cancer with disease recurrence with mets to the spine, lung, and lymph nodes. She has completed her 6 cycles of gemcitabine and cis-[place], with improvement today of her nausea, continues with now her maintenance of avelumab every 2 weeks. She completed her restaging scans with decrease in her lymphadenopathy and bilateral pulmonary nod ules. She recently completed an MRI for her lower scan. She does have known fractures of L1, L3, and L4 with osteopenia in her remaining vertebrae. Her pain is continued to improve with this, she had received stereotactic body radiation in 2 fractions completed May 2020. She still has some residual right calf pain and numbness. But her current pain is managed on morphine 15 mg twice daily, with rarely needing now breakthrough pain medication. She does report though some discomfort in her right knee, attributes this from over use yesterday. Overall she is feeling much more encouraged, her energy is coming back, she still has days of significant fatigue, but her labs are within normal limits.She reports her mood is improved, and is looking forward to defining her next chapter in the context of more chronic disease management. 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 Support System: Patient lives with her micki Antonio, they have been since last January but together 17 years. She is recently retired from her business, this was a difficult transition. She has 2 sons who are available and supportive. She has 4 siblings have been rotating to give support as well as many friends. Medications/Allergies - Medications Home Medications: Ambulatory Orders Medication Instructions Recorded Confirmed Albuterol Sulf [Ventolin Hfa 1 puffs PO DAILY PRN 08/30/18 09/19/20 Inhaler] EPINEPHrine [Epinephrine] 1 ml SQ ONCE PRN 08/30/18 09/19/20 Pravastatin [Pravachol] 10 mg PO DAILY 08/30/18 09/19/20 Ondansetron [Ondansetron Odt] 8 mg PO Q8HR PRN 05/30/20 09/19/20 Prochlorperazine Maleate 10 mg PO Q8HR PRN 05/30/20 09/19/20 [Compazine] Senna [Senokot] 2 tab PO DAILY PRN MDD titrate to 05/30/20 09/19/20 effect polyethylene glycoL 3350 [Miralax] 17 gm PO DAILY PRN 05/30/20 09/19/20 Cholecalciferol (Vitamin D3) 1,000 units PO DAILY 06/01/20 09/19/20 [Vitamin D3] Morphine Ir [Ms Ir] 7.5 - 15 mg PO Q3HR PRN 07/03/20 09/19/20 Morphine ER [Morphine Sulfate ER] 15 mg PO BID MDD TID 07/17/20 09/19/20 Omeprazole [PriLOSEC] 20 mg PO DAILY 08/29/20 09/19/20 Rivaroxaban [Xarelto] 10 mg PO DAILY MDD after complete 08/29/20 09/19/20 lovenox - Allergies Allergies/Adverse Reactions: Allergies Allergy/AdvReac Type Severity Reaction Status Date / Time peanut Allergy Severe Anaphylaxis Verified 08/30/18 14:43 sulfamethoxazole Allergy Severe Anaphylaxis Verified 08/30/18 14:43 [From ] trimethoprim [From ] Allergy Severe Anaphylaxis Verified 08/30/18 14:43 adhesive AdvReac Rash Verified 06/01/20 17:56 oxycodone AdvReac Diaphoresis Verified 06/01/20 17:57 Review of Systems - Constitutional Constitutional: reports: Fatigue (improving), Weakness, Weight loss (133). denies: Fever, Chills - Eyes Eyes: reports: Corrective lenses (reading) - Ears, Nose & Throat Ears, Nose & Throat: reports: Dry mouth (taste changes improved). denies: Mouth lesions - Cardiovascular Cardiovascular: reports: Decr. exercise tolerance. denies: Edema (resolved/ wearing support hose) - Respiratory Respiratory: reports: SOB with exertion. denies: Cough, SOB at rest - Gastrointestinal Gastrointestinal: reports: Nausea (intermittent; using 1-2 doses antiemetic daily), Vomiting (min. episodes), Early satiety. denies: Constipation (currently controlled), Reflux/heartburn (improved with omeprazole) - Musculoskeletal Musculoskeletal: reports: Back pain, Muscle aches, Stiffness, Limited range of motion (right leg; difficulty bending), Muscle weakness, Assistive devices (uses walker for ambulation; offloads back with increased discomfort upper extremities) - Integumentary Integumentary: reports: Dryness, Hair changes (thinning) - Neurological Neurological: reports: Focal weakness (right leg), Numbness (worsening right side), Abnormal gait - Psychiatric Psychiatric: reports: Anxiety - Hematologic/Lymphatic Hematologic/Lymph: reports: Anemia (improved). denies: Recurrent infections - All Other Systems All Other Systems: reports: Reviewed and negative Physical Exam - Vital Signs Temperature: 97.5 C Pulse Rate: 87 Respiratory Rate: 18 O2 Saturation: 98 Blood Pressure: 106/74 - Physical Exam General Appearance: positive: No acute distress, Alert, Other (more relaxed and alert) Eyes Bilateral: positive: Normal inspection ENT: negative: No signs of dehydration Neck: positive: Trachea midline Cardiovascular: positive: Regular rate & rhythm Respiratory: positive: No respiratory distress, Breath sounds nml. negative: Wheezes Abdomen: positive: Soft, Nml bowel sounds Skin: positive: Pallor, Dryness Extremities: negative: Full ROM (limited on RLE), Pedal edema (resolved; has support socks on) Neurologic/Psychiatric: positive: Oriented x3, Mood/affect nml Palliative Care - POLST Patient has POLST: No Pain: Pain improved, Location (back/lower right leg), Comment (using MS ER 15 mg BID) Constipation: Yes, Managed Performance Status: Patient with increased strength, and improved fatigue. Is trying to increase her activity. Is taking short walks, taking time out in the garden, though cannot bend to participate. Is looking for more instruction on strength building balancing with risk of further injury. - Palliative Care Discussion: Discussion with and patient today regarding balance of preparing for end-of-life and hoping for the best. Patient and recognize tension, 's past experiences influence him wanting to get details taking care of, where as patient likes to live in the moment and is feeling overwhelmed often when these conversations happen. Normalized feelings, suggestions provided regarding negotiating conversation, as well acknowledging concerns on both part. Results - Lab Results Lab results reviewed: Yes Lab and Imaging Results: WBC 5.72, RBC 3.11 hemoglobin 9.3, hematocrit 29% platelets 172 neutrophils 3.32 CMP within normal limits LDH 165 cortisol 5.9 TSH 1.4 iron 49, TIBC 274, transferrin saturation 18% ferritin 215 thyroxine 0.9 folate greater than 22 vitamin B12 498 Impression and Recommendations - Palliative Care Impression: This is a micki 55-year-old woman with metastatic urethral cancer with mets to the L3/L4, lymphadenopathy and pulmonary nodule mets. Patient's pain continues to improve, recovering from chemotherapeutic toxicities, thus far tolerating avelumab. Palliative care continue provide support for pain and symptom management, psychosocial support, and anticipatory guidance Recommendations/Counseling Done: 1. Pain of neoplastic origin. Patient's pain is multifactorial, L1 fracture appears to be healing with baseline pain improving. Still have some stiffness and neuropathic component to her pain in her right lower calf. Patient's goals are to minimize sedation and medications, at this point time is taking MS sustained release 15 mg twice daily with very little IR. Patient satisfied with her current regimen. 2. Nausea/vomiting. This appears to continue to improve, now taking medications in response to intermittent episodes. Instructed to take her evening MS Contin with food. We will continue to monitor. 3. Weight loss. Patient continues with some anorexia, taste changes are improving which is helping. She is eating better, counseling provided again regarding focus on nutritional food, adding protein, and current goal for no further weight loss. 4. Generalized weakness. Patient wanting to do some supportive exercise. Patient is at high risk for sequela of further fractures. Counseling provided regarding chair yoga, and arm exercises, as well as progressive walking with a balance of energy/and/or pain. 5. Depression. Patient with improved mood and fatigue, adding to improved outlook. Patient continues with fluctuating days, but continuing on upper cycle. Patient with recent intermediate, as well as diagnosis of serious illness. Counseling provided to encourage focusing on goalsetting, priorities, and integrating a new normal. 6. Advanced care planning. Patient has been continue to work on end-of-life planning goals, complex situation with blended family and different perspectives on how best to approach this. We will continue to provide support, counseling provided to normalize current feelings and ways to address barriers. 60 minutes with greater than 50% of this done in counseling regarding pain and symptom management, supportive counseling around quality of life issues, advance care planning, and anticipatory guidance
== END 2020-10-23 11:01 | disposition home or self-care (01) ==
LOC: PC 11:00
PROVIDERS: ATTEND Nurse Practitioner Adult Health
DX: Z51.5 Encounter for palliative care (principal); G89.3 Neoplasm related pain (acute) (chronic); Z92.3 Personal history of irradiation; R53.1 Weakness; R11.2 Nausea with vomiting, unspecified; R63.4 Abnormal weight loss; R63.0 Anorexia; R43.9 Unspecified disturbances of smell and taste; R53.83 Other fatigue; T45.1X5D Adverse effect of antineoplastic and immunosuppressive drugs, subsequent encounter; F32.9 Major depressive disorder, single episode, unspecified; M84.58XD Pathological fracture in neoplastic disease, other specified site, subsequent encounter for fracture with routine healing; M85.88 Other specified disorders of bone density and structure, other site; C67.9 Malignant neoplasm of bladder, unspecified; C77.9 Secondary and unspecified malignant neoplasm of lymph node, unspecified; C79.51 Secondary malignant neoplasm of bone; C78.01 Secondary malignant neoplasm of right lung; C78.02 Secondary malignant neoplasm of left lung; Z79.899 Other long term (current) drug therapy; Z79.891 Long term (current) use of opiate analgesic; Z90.5 Acquired absence of kidney; Z92.21 Personal history of antineoplastic chemotherapy
CPT/HCPCS: 99350

== ENCOUNTER 2020-11-20 11:00 | Outpatient (CLI) | payer OTHER ==
--- NOTE | 2020-11-20 17:24 | CONSULTATION NOTE ---
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 She has completed her 6 cycles of gemcitabine and [place], and is now on her maintenance avelumab every 2 weeks. She has had improvement of her nausea, with intermittent maybe 1-2 times a week, responsive to ondansetron, with occasional vomiting. Her fatigue is improving, suspect this is directly attributable to her improving hemoglobin which was 9.5 on 11/11/2020. Patient has developed another exacerbation of her herpes zoster, 1 cm area of mid center back, her first was in July with treatment of acyclovir, second with September with no treatment a smaller flare, and then today with most likely symptoms of 4 to 5 days. Currently is blistered, and not open. We will go ahead and started on valacyclovir 500 mg twice daily for 7 days, and will follow up with oncology team if patient should be on prophylactic. Patient has quite aversion to medication, so is not enthusiastic about this option. Patient's pain has remained fairly persistent, with increased right numbness and pain in her upper thigh radiating into RLE and pressure in lower back, she has developed though some increased which she perceives as circulation problems, with feeling of coldness in her feet, she does wear support stockings for mild peripheral edema, weather has changed, but temperature of her legs does get quite cool and uncomfortable for her. A check of her pulses do show she has good circulation, color is good, blanches without problem with her toenail refill. She is been much more active, her weight has gone down 2 pounds since I seen her last, 131. She reports she attributes this to her activity, she has been eating and drinking better, but continues with taste changes, early satiety, and intermittent anorexia. She is due for follow-up staging scans 12/[address] abdomen/pelvis and bone, with MRI scheduled in December. Past Medical History: 60 minutes with greater than 50% of this done in counseling regarding symptom management, coordination of care with oncology team, and anticipatory guidance. Social History - Living Situation Living arrangement: At home Living Situation: With spouse/s.o. Medications/Allergies - Medications Home Medications: Ambulatory Orders Medication Instructions Recorded Confirmed Albuterol Sulf [Ventolin Hfa 1 puffs PO DAILY PRN 08/30/18 11/21/20 Inhaler] EPINEPHrine [Epinephrine] 1 ml SQ ONCE PRN 08/30/18 11/21/20 Pravastatin [Pravachol] 10 mg PO DAILY 08/30/18 11/21/20 Ondansetron [Ondansetron Odt] 8 mg PO Q8HR PRN 05/30/20 11/21/20 Prochlorperazine Maleate 10 mg PO Q8HR PRN 05/30/20 11/21/20 [Compazine] Senna [Senokot] 2 tab PO DAILY PRN MDD titrate to 05/30/20 11/21/20 effect polyethylene glycoL 3350 [Miralax] 17 gm PO DAILY PRN 05/30/20 11/21/20 Cholecalciferol (Vitamin D3) 1,000 units PO DAILY 06/01/20 11/21/20 [Vitamin D3] Morphine Ir [Ms Ir] 7.5 - 15 mg PO Q3HR PRN 07/03/20 11/21/20 Morphine ER [Morphine Sulfate ER] 15 mg PO BID MDD TID 07/17/20 11/21/20 Omeprazole [PriLOSEC] 20 mg PO DAILY 08/29/20 11/21/20 Rivaroxaban [Xarelto] 10 mg PO DAILY 08/29/20 11/21/20 Valacyclovir HCl [Valtrex] 500 mg PO BID MDD 7 days 11/21/20 11/21/20 - Allergies Allergies/Adverse Reactions: Allergies Allergy/AdvReac Type Severity Reaction Status Date / Time peanut Allergy Severe Anaphylaxis Verified 08/30/18 14:43 sulfamethoxazole Allergy Severe Anaphylaxis Verified 08/30/18 14:43 [From ] trimethoprim [From ] Allergy Severe Anaphylaxis Verified 08/30/18 14:43 adhesive AdvReac Rash Verified 06/01/20 17:56 oxycodone AdvReac Diaphoresis Verified 06/01/20 17:57 Review of Systems - Constitutional Constitutional: reports: Fatigue (improved; flucutates depending on activity), Weakness (improved with improving HGB), Weight loss (131 (2 pounds since last visit) patient attributes to increase activity). denies: Fever, Chills - Eyes Eyes: reports: Corrective lenses (reading) - Ears, Nose & Throat Ears, Nose & Throat: reports: Dry mouth (taste changes improved). denies: Mouth lesions - Cardiovascular Cardiovascular: reports: Decr. exercise tolerance, Other (c/o decrease circulation in feet/LE bilat; feeling cold with weather changes;). denies: Edema (resolved/ wearing support hose) - Respiratory Respiratory: denies: Cough, SOB at rest - Gastrointestinal Gastrointestinal: reports: Nausea (intermittent; decreased to 1-2 x a week from daily), Vomiting (min. episodes), Early satiety, Other (continues with some food aversions). denies: Constipation (currently controlled), Reflux/heartburn (improved with omeprazole) - Musculoskeletal Musculoskeletal: reports: Back pain, Muscle aches, Stiffness, Limited range of motion (right leg; difficulty bending; stiffness in am after sleeping;), Muscle weakness, Assistive devices (uses walker for ambulation; offloads back) - Integumentary Integumentary: reports: Dryness, Hair changes (thinning) - Neurological Neurological: reports: Focal weakness (right leg), Numbness (worsening right side), Abnormal gait - Psychiatric Psychiatric: reports: Anxiety - Hematologic/Lymphatic Hematologic/Lymph: reports: Anemia (improved), Recurrent infections (3rd round of herpes zoster mid back; about 4-5 days in currently;) - All Other Systems All Other Systems: reports: Reviewed and negative Physical Exam - Vital Signs Temperature: 97.5 C Pulse Rate: 96 Respiratory Rate: 18 O2 Saturation: 95 (ra @ rest) Blood Pressure: 92/54 - Physical Exam General Appearance: positive: No acute distress, Alert, Other (more relaxed and alert and energetic) Eyes Bilateral: positive: Normal inspection ENT: negative: No signs of dehydration Neck: positive: Trachea midline Cardiovascular: positive: Regular rate & rhythm Respiratory: positive: No respiratory distress, Breath sounds nml. negative: Wheezes Abdomen: positive: Soft Skin: positive: Pallor, Dryness Extremities: positive: Other (feet warm to touch on exam but had just showered; pulses present). negative: Full ROM (limited on RLE), Pedal edema (resolved; has support socks on) Neurologic/Psychiatric: positive: Oriented x3, Mood/affect nml Palliative Care - POLST Patient has POLST: No POLST Status: Full Code Pain: Pain improved Sleep: Sleeps well (but awakens stiff and uncomfortable; tries to reposition through the night) Constipation: No (not needing bowel meds) Performance Status: Patient is ambulating more easily, using rolling walker more for balance, not necessarily so much to offload. She is independent in ADLs. Is able to get up and down much easier. She did overdo the other day with several hours of gardening, and has been able to tolerate sitting for long periods of time. Though has been warned to pace herself and be up more frequently to offload pressure on her back - Palliative Care Discussion: Patient has been continue to struggle with completing end-of-life planning, finding that balance of moving forward and making difficult decisions. As well as she is now feeling better, finding ways to normalize their current routine. Her son has recently had Covid, is worried about continued struggle regarding vaccinations. Patient is feeling much better overall, and positive but awaiting next round of scans. Patient denies depression, but does have some underlying anxiety. Results - Lab Results Lab results reviewed: Yes Lab and Imaging Results: WBC 5.73, RBC 3.21, hemoglobin 9.5, hematocrit 30%, platelet count 151, sodium 138, potassium 4.1, BUN 12, creatinine 0.79, protein 6.7, albumin 3.8, bilirubin 0.4 Impression and Recommendations - Palliative Care Impression: This is a micki 55-year-old woman with metastatic urothelial cancer with mets to the L4/L4, lymphadenopathy, and known pulmonary mets. Patient's pain continues to be improved and managed with MS 15 mg twice daily, very little IR. Patient has developed some lower extremity cooling, though pulses are good. Patient also presents today with recurrent herpes zoster. Palliative care cont inue provide support for pain and symptom management, psychosocial support and anticipatory guidance. Recommendations/Counseling Done: 1. Pain of neoplastic origin. Patient's pain is multifactorial, L1 fracture appears to be healing, though she did have an exacerbation with gardening the other day. Still having some stiffness and neuropathic component to her pain on her right leg and lower calf. Patient's goals are to minimize sedation and medications, at this point she continues with 50 mg twice a day with little MSIR. Patient satisfied with her current regimen, though most likely would benefit from some addition of pregabalin particularly at bedtime. 2. Nausea/vomiting. This continues to improve with decreased episodes of 1-2 times a week. We will continue to monitor. 3. Weight loss. Patient continues with some mild anorexia, taste changes she is eating better, but continues to lose weight. Patient attributes to increase activity, counseling again provided and reminded need to focus more on small frequent feedings and possible calorie considerations for high calorie foods. Goal is for no further weight loss and most likely not realistic at this time for weight gain. 4. Generalized weakness. Patient continues to improve overall. As far as ambulating better, better strength and endurance suspect this is also with improved anemia. Patient continues with progressive walking, gardening, and doing more household tasks. 5. Herpes zoster. Patient now with third occurrence, is 4 to 5 days into it, still has blistering, will go ahead and order valacyclovir 500 mg twice daily for 7 days, reach out to her oncology team whether patient needs to be on prophylactic valacyclovir ongoing, message left with question and concerns. 6. Lower extremity temperature changes. Patient perceives feet have been increasingly cold, patient with positive pulses, does wear thin supportive socks, has had weight loss. Encouraged to wear thicker socks for warmth and circulation. Will reach out to oncology team to make sure they are aware, patient does not present with any claudication, swelling, good blanching and return of circulation. Patient is due for scans on 12/05. 7. Advanced care planning. Patient continues to work on end-of-life planning goals, it is a complex situation with blended family and continued different perspectives on how best to approach this. We will continue provide support, will need further advanced care planning documents but will let patient and pace conversation.
== END 2020-11-20 11:01 | disposition home or self-care (01) ==
LOC: PC 11:00
PROVIDERS: ATTEND Nurse Practitioner Adult Health
DX: Z51.5 Encounter for palliative care (principal); G89.3 Neoplasm related pain (acute) (chronic); R53.1 Weakness; R11.2 Nausea with vomiting, unspecified; R63.4 Abnormal weight loss; R63.0 Anorexia; T45.1X5D Adverse effect of antineoplastic and immunosuppressive drugs, subsequent encounter; F32.9 Major depressive disorder, single episode, unspecified; M84.58XD Pathological fracture in neoplastic disease, other specified site, subsequent encounter for fracture with routine healing; M85.88 Other specified disorders of bone density and structure, other site; C67.9 Malignant neoplasm of bladder, unspecified; C77.9 Secondary and unspecified malignant neoplasm of lymph node, unspecified; C79.51 Secondary malignant neoplasm of bone; C78.01 Secondary malignant neoplasm of right lung; C78.02 Secondary malignant neoplasm of left lung; Z90.5 Acquired absence of kidney; R53.83 Other fatigue; B02.9 Zoster without complications; R43.9 Unspecified disturbances of smell and taste; Z79.899 Other long term (current) drug therapy; Z79.891 Long term (current) use of opiate analgesic; Z79.51 Long term (current) use of inhaled steroids; Z92.3 Personal history of irradiation
CPT/HCPCS: 99350

== ENCOUNTER 2020-12-25 11:30 | Outpatient (CLI) | payer OTHER ==
--- NOTE | 2020-12-25 15:30 | CONSULTATION NOTE ---
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 Her renal toxicity numbers have continued to improve, it was a difficult hospitalization for her. She is reporting both emotional and physical fatigue with her series of events over the last several weeks.She will need to have the ureteral stent replaced every three months. She has met with Dr. Barroso, and currently has started Balversa, is anxious as d oes have extensive side effect profile, low phosphate is main concern. It has been less than a week, so far she is tolerating without any difficulty. This is a targeted therapy, and her understanding is it will prolong her life for several months. She is anxious appropriately, but happy at this point in time not to be experiencing nausea. She continues to struggle with pain, has been progressive in nature. Originally on the right with significant lower leg pain numbness, now has developed it on the left. She is quite grateful as she has seen the spine surgeon, at this point in time would not be a candidate or recommendation for spine surgery. She has noted though her toes are numb, she does have good bladder and bowel control, at this time they do not have anything to target specifically with kyphoplasty. Past Medical History: Urothelial CA s/p nephrectomy 03/05; bladder cancer 08/03 s/p TURBT, hypercholesteremia, asthma, GERD, claustrophobia, osteoarthritis, eczema, section x2, Port-A-Cath placement, ureteral stent placement Social History - Living Situation Living arrangement: At home Living Situation: With spouse/s.o. Support System: Patient lives at home with her micki Antonio, he is off to [email or web address] celebrations today. They have been since last January but have been together over 17 years. 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 She has 2 sons who are available and supportive but with increased complications in the context of not vaccinated. She has 4 siblings and friends who have been rotating to give support. Medications/Allergies - Medications Home Medications: Ambulatory Orders Medication Instructions Recorded Confirmed Albuterol Sulf [Ventolin Hfa 1 puffs PO DAILY PRN 08/30/18 12/29/20 Inhaler] EPINEPHrine [Epinephrine] 1 ml SQ ONCE PRN 08/30/18 12/25/20 Prochlorperazine Maleate 10 mg PO Q8HR PRN 05/30/20 12/25/20 [Compazine] Morphine Ir [Ms Ir] 7.5 - 15 mg PO Q3HR PRN 07/03/20 12/25/20 Morphine ER [Morphine Sulfate ER] 15 mg PO BID MDD TID 07/17/20 12/25/20 Erdafitinib [Balversa] 8 mg PO DAILY 12/29/20 12/29/20 Ondansetron [Ondansetron Odt] 8 mg PO Q8HR PRN 12/29/20 12/29/20 - Allergies Allergies/Adverse Reactions: Allergies Allergy/AdvReac Type Severity Reaction Status Date / Time peanut Allergy Severe Anaphylaxis Verified 08/30/18 14:43 sulfamethoxazole Allergy Severe Anaphylaxis Verified 08/30/18 14:43 [From ] trimethoprim [From ] Allergy Severe Anaphylaxis Verified 08/30/18 14:43 adhesive AdvReac Rash Verified 06/01/20 17:56 oxycodone AdvReac Diaphoresis Verified 06/01/20 17:57 Review of Systems - Constitutional Constitutional: reports: Fatigue, Weakness (improved with improving HGB), Weight loss (129 (2 pounds since last visit)). denies: Fever, Chills - Eyes Eyes: reports: Corrective lenses (reading) - Ears, Nose & Throat Ears, Nose & Throat: reports: Dry mouth (taste changes improved). denies: Mouth lesions - Cardiovascular Cardiovascular: reports: Decr. exercise tolerance. denies: Edema (resolved/ wearing support hose) - Respiratory Respiratory: denies: Cough, SOB at rest - Gastrointestinal Gastrointestinal: reports: Vomiting (min. episodes), Early satiety, Other (continues with some food aversions). denies: Constipation (currently controlled), Reflux/heartburn (improved with omeprazole) - Musculoskeletal Musculoskeletal: reports: Back pain, Muscle aches, Stiffness, Limited range of motion (right leg; difficulty bending; stiffness in am after sleeping; left leg new with limitations), Muscle weakness, Assistive devices (uses walker for ambulation; offloads back) - Integumentary Integumentary: reports: Dryness, Hair changes (thinning) - Neurological Neurological: reports: Focal weakness (right leg), Numbness ( right side;new left side LE;), Abnormal gait - Psychiatric Psychiatric: reports: Anxiety - Hematologic/Lymphatic Hematologic/Lymph: reports: Anemia (improved) - All Other Systems All Other Systems: reports: Reviewed and negative Physical Exam - Vital Signs Temperature: 97.2 C Pulse Rate: 72 Respiratory Rate: 16 O2 Saturation: 98 Blood Pressure: 122/72 - Physical Exam General Appearance: positive: No acute distress, Alert Eyes Bilateral: positive: Normal inspection ENT: negative: No signs of dehydration Neck: positive: Trachea midline Cardiovascular: positive: Regular rate & rhythm Respiratory: positive: No respiratory distress, Breath sounds nml. negative: Wheezes Abdomen: positive: Soft Skin: positive: Pallor, Dryness Extremities: positive: No pedal edema. negative: Full ROM (limited on RLE; now some on left) Neurologic/Psychiatric: positive: Oriented x3, Mood/affect nml Palliative Care - POLST Patient has POLST: No Pain: Pain worsening Tiredness/Fatigue: Moderate (4-6) Drowsiness/Sedation: Mild (1-3) Nausea: None Anorexia: Mild (1-3), Weight loss (129) Dyspnea: Mild (1-3) Depression: Mild (1-3) Anxiety: Moderate (4-6) (with new treatment) Feelings of wellbeing/Perceived Quality of Life: Good, Acceptable, Improved Sleep: Variable sleep pattern Constipation: No Performance Status: Patient's performance status has not declined significantly, she is ambulatory with her walker. She does have a little bit more energy. She does need some assistance more related to her limitations with bending and folding, does need some assistance with dressing. She has been trying to continue to do some household tasks, to at least be supportive of some of the duties her is taking on. - Palliative Care Discussion: at [employer] today, ability to sit and have a good discussion with patient where she is at currently. They have done lots of end-of-life planning, we discussed what this was like for her, he is very much detail person and very perseverative on getting all the tees crossed denies started. She finds this quite fatiguing both emotionally and physically, they have completed most of the more significant tasks, including estate planning, planning, and figuring out financial and legal issues. Counseling provided to normalize current feelings regarding of anticipatory grief, ways to raise center and consider supporting each other, both have different ways of coping. Patient very aware of the seriousness of her illness, and prognosis is limited. She is trying to stay centered and enjoy her time she has. She is aware her 's coping mechanisms are to have things in preparation, but finds them cells at odds regarding this at times Results - Lab Results Lab results reviewed: Yes Impression and Recommendations - Palliative Care Impression: This is a micki 55-year-old woman with metastatic urothelial cancer with mets to the bone, lymphadenopathy, and known pulmonary mets. Patient with recent acute hospitalization requiring ureteral stent placement. Patient is also had an exacerbation of her pain, now having left sided left leg pain and numbness as well. Has seen spine surgeon without needing any intervention at this time. Patient continues to struggle both emotionally and physically with ongoing sequela of both disease and treatments. Palliative care providing support for symptom management and anticipatory guidance. Recommendations/Counseling Done: 1. Pain of neoplastic origin. Currently patient has not needed minor surgery, though does have intensified pain. Does have the MSIR for breakthrough pain, did discuss given her increase overall limb pain, could add third morphine if desired. Currently she is doing well with twice daily and taking MSIR in between. Patient is also working with meditation, distraction, and hoping to add some stretching and light exercises. Did get okay and referral to physical therapy from spine surgeon. 2. Anxiety. This is multifactorial, reviewed current stressors, coping mechanisms, available support. Counseling provided to normalize current feelings and responses, as well as anticipatory guidance. 3. Advanced care planning. Patient and continue to move forward on advanced care planning documents, planning, trying to find a balance as far as hoping for the best preparing for the worse. Reviewed different strategies, coping mechanisms, and psychosocial support and anticipatory guidance provided. 60 minutes with greater than 50% of this done in counseling regarding psychosoc ial stressors, anxiety, anticipatory guidance, review of new medications, symptom management, and pain.
== END 2020-12-25 11:31 | disposition home or self-care (01) ==
LOC: PC 11:30
PROVIDERS: ATTEND Nurse Practitioner Adult Health
DX: Z51.5 Encounter for palliative care (principal); G89.3 Neoplasm related pain (acute) (chronic); C80.1 Malignant (primary) neoplasm, unspecified; C78.00 Secondary malignant neoplasm of unspecified lung; C77.9 Secondary and unspecified malignant neoplasm of lymph node, unspecified; C79.11 Secondary malignant neoplasm of bladder; C79.51 Secondary malignant neoplasm of bone; M79.605 Pain in left leg; M79.604 Pain in right leg; F41.9 Anxiety disorder, unspecified
CPT/HCPCS: 99350

== ENCOUNTER 2021-01-23 12:00 | Outpatient (CLI) | payer OTHER ==
--- NOTE | 2021-01-23 17:24 | CONSULTATION NOTE ---
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 She has had recent hospitalization for ureteral obstructions s/p left ureteral stent placement, due to have replaced on 02/25/2021. She had completed 6 cycles of chemotherapy with gemcitabine/cis-mentasta F/B2 cycles of maintenance Avelumab but November scans which showed progression. She is now started oral Balversa, she has had mild diarrhea, higher phospate levels, she has been avoiding phospate in her diet and as a result has lost more weight, is now 121. She does report overall feeling fairly well, she does have some fluctuating days with energy, but is very much looking forward to the holidays and has enjoyed less trips down to [place]. She continues to struggle with pain, though continues on her current regimen of morphine 15 mg extended release twice daily, with MS 15 mg immediate release as needed. She has been using this at bedtime, continues to have significant lower extremity numbness that continues to progress now up to above her knees. She is usually fine during the day, but when lays down or at nighttime it creates a sensation of stiffness, feels like her legs are like concrete, but this resolves when she is up and moving around. But does not resolve it is the significant numbness and allodynia in her toes and legs. She is having significant hair loss now, much to her disappointment. She continues to push for fluids, is having some difficulty with dry eyes, and has completed her ophthalmology appointment. Past Medical History: Urothelial CA s/p nephrectomy 03/05; bladder cancer 08/03 s/p TURBT, hype rcholesteremia, asthma, GERD, claustrophobia, osteoarthritis, eczema, section x2, Port-A-Cath placement, ureteral stent placement Social History - Living Situation Living arrangement: At home Living Situation: With spouse/s.o. Support System: Patient lives at home with her micki Antonio. They have been for a year, but have been together over 17 years. 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 She does have 2 sons, who are available and supportive and are trying to arrange for a family [place] experience. It is somewhat complicated in the context they are not vaccinated. She does have 4 siblings and friends who have been rotating to give support. Medications/Allergies - Medications Home Medications: Ambulatory Orders Medication Instructions Recorded Confirmed Albuterol Sulf [Ventolin Hfa 1 puffs PO DAILY PRN 08/30/18 01/23/21 Inhaler] EPINEPHrine [Epinephrine] 1 ml SQ ONCE PRN 08/30/18 01/23/21 Prochlorperazine Maleate 10 mg PO Q8HR PRN 05/30/20 01/23/21 [Compazine] Morphine Ir [Ms Ir] 7.5 - 15 mg PO Q3HR PRN 07/03/20 01/23/21 Morphine ER [Morphine Sulfate ER] 15 mg PO BID MDD TID 07/17/20 01/23/21 Erdafitinib [Balversa] 9 mg PO DAILY 12/29/20 01/23/21 Ondansetron [Ondansetron Odt] 8 mg PO Q8HR PRN 12/29/20 01/23/21 - Allergies Allergies/Adverse Reactions: Allergies Allergy/AdvReac Type Severity Reaction Status Date / Time peanut Allergy Severe Anaphylaxis Verified 08/30/18 14:43 sulfamethoxazole Allergy Severe Anaphylaxis Verified 08/30/18 14:43 [From ] trimethoprim [From ] Allergy Severe Anaphylaxis Verified 08/30/18 14:43 adhesive AdvReac Rash Verified 06/01/20 17:56 oxycodone AdvReac Diaphoresis Verified 06/01/20 17:57 Review of Systems - Constitutional Constitutional: reports: Fatigue (improved), Weakness (improved with improving HGB), Weight loss (121; met with sales donor recruitment representative today; restrictive diet with phospherous adding to decreased calories). denies: Fever, Chills - Eyes Eyes: reports: Corrective lenses (reading), Other ("dry spot" on one eye; using lubricating drops) - Ears, Nose & Throat Ears, Nose & Throat: reports: Dry mouth (taste changes improved but remains quite dry). denies: Mouth lesions - Cardiovascular Cardiovascular: reports: Decr. exercise tolerance. denies: Edema (resolved/ wearing support hose) - Respiratory Respiratory: denies: Cough, SOB at rest - Gastrointestinal Gastrointestinal: reports: Diarrhea (loose stool daily; occasionally watery stool; has not used immodium), Early satiety. denies: Reflux/heartburn (improved with omeprazole) - Musculoskeletal Musculoskeletal: reports: Back pain, Muscle aches, Stiffness, Limited range of motion (right leg; difficulty bending; stiffness in am after sleeping; left leg new with limitations; has met with PT now twice), Muscle weakness, Assistive devices (uses walker for ambulation; offloads back) - Integumentary Integumentary: reports: Dryness, Hair changes (loosing more quickly) - Neurological Neurological: reports: Focal weakness (right leg), Numbness ( right side;new left side LE;), Abnormal gait - Psychiatric Psychiatric: reports: Anxiety - Hematologic/Lymphatic Hematologic/Lymph: reports: Anemia - All Other Systems All Other Systems: reports: Reviewed and negative Physical Exam - Vital Signs Temperature: 97.2 C Pulse Rate: 72 Respiratory Rate: 18 O2 Saturation: 97 Blood Pressure: 112/62 - Physical Exam General Appearance: positive: No acute distress, Alert Eyes Bilateral: positive: Normal inspection ENT: negative: No signs of dehydration Neck: positive: Trachea midline Cardiovascular: positive: Regular rate & rhythm Respiratory: positive: No respiratory distress, Breath sounds nml. negative: Wheezes Abdomen: positive: Soft Skin: positive: Pallor, Dryness Extremities: positive: No pedal edema. negative: Full ROM (limited on RLE; now some on left) Neurologic/Psychiatric: positive: Oriented x3, Mood/affect nml Palliative Care - POLST Patient has POLST: No Pain: Pain worsening, Location (bilateral legs; right greater than left; numbn ess and allodynia more difficult symptoms progressing up to mid thigh; see hPI) Feelings of wellbeing/Perceived Quality of Life: Good, Acceptable, Improved Sleep: Variable sleep pattern Performance Status: Patient has seen physical therapy x2, her goal is hopefully to improve her mobility and function. She is ambulatory with a rolling walker, still has limitations as far as forward folding, she has had some muscle loss with her weight loss. She is doing more of the household tasks, and pacing herself depending on her fluctuating energy levels. - Palliative Care Discussion: Discussion with patient and regarding where they are at currently. Patient does understand the seriousness of her illness, is hoping for good family holiday in the context of memory making. She has been very busy in her preparations for this, and end-of-life planning though mostly completed has been put on the back burner. We discussed currently that important things have been taken care of, she can focus on what brings her evens and comfort at this point in time particularly with the holidays approaching. She feels like her mood is doing well, she does have goals to hopefully in prove her weight and strength. She will have scans again in February, as well as the stent replacement. They are enjoying their time with less medical appointments and seems quite relaxed today. Results - Lab Results Lab results reviewed: Yes Lab and Imaging Results: WBC 4.1, hemoglobin 9.5, hematocrit 30%, platelet count 180, neutrophils 1.7, BUN 14, creatinine 1.0, protein 7.1, albumin 4.0, bilirubin 0.5, calcium 9.6 phosphatase 66, ALT 19, phosphate 5.7 Impression and Recommendations - Palliative Care Impression: This is a micki 55-year-old woman with metastatic urothelial cancer with mets to the bone, lymphadenopathy, and known pulmonary mets. Patient is currently on oral agent Balversa. She is having some elevated phosphate numbers, this is expected as a side effect as well's some intermittent loose stools/diarrhea. She has had some significant weight loss at 121, though this appears also in conjunction with her more restrictive diet. She did talk with the dietitian today, may need to go on PhosLo. Patient is doing better both physically and emotionally, is looking forward to the holidays. Her pain is currently co ntrolled though is having more trouble with neuropathy. Palliative care continue provide support regarding symptom management and psychosocial support as well as anticipatory guidance Recommendations/Counseling Done: 1. Pain of neoplastic origin. Currently patient is having more progressive allodynia and numbness with her peripheral neuropathy. She is managing with mo rphine 15 mg SR twice daily and trialing some MS 15 IR at bedtime. Is considering adding the pregabalin but going to trial the IR at this point in time. Patient has done some physical therapy, with mixed results as far as relief and exacerbation of discomfort. She is hoping to be able to be more functional. 2. Anxiety. This is multifactorial, reviewed current stresses, coping mechanisms, and available support. She is looking forward to the holidays, discussed testing 3 days prior and then morning of to rule out anxiety regarding exposure to Covid. She is hoping for a nice family Tosha. 3. Advanced care planning. Patient has been continue forward on their advance care planning. They are going to take a little hiatus for the holidays, they do have brandt pieces in place. Both are very cognizant of the seriousness of her illness, but are continue to hope both for quality and quantity of life and their goals. 60 minutes with greater than 50% of this and in counseling regarding psychosocial stressors, anxiety, anticipatory guidance and symptom management.
== END 2021-01-23 12:01 | disposition home or self-care (01) ==
LOC: PC 12:00
PROVIDERS: ATTEND Nurse Practitioner Adult Health
DX: Z51.5 Encounter for palliative care (principal); G89.3 Neoplasm related pain (acute) (chronic); C68.0 Malignant neoplasm of urethra; C78.00 Secondary malignant neoplasm of unspecified lung; C77.9 Secondary and unspecified malignant neoplasm of lymph node, unspecified; C79.51 Secondary malignant neoplasm of bone; G62.9 Polyneuropathy, unspecified; F41.9 Anxiety disorder, unspecified
CPT/HCPCS: 99350

== ENCOUNTER 2021-03-20 11:00 | Outpatient (CLI) | payer OTHER ==
--- NOTE | 2021-03-20 12:53 | CONSULTATION NOTE ---
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 Urethral cancer recurrence found with mets to the spine, lung, and lymph nodes. She does have a ureteral splint, secondary to obstruction, is due for replacement on 03/31. She has completed her chemotherapy, unfortunately her scans had shown progression, now she is started on oral Balversa. She has had to stop secondary to higher phosphate levels, and see her retinal specialist secondary to vision changes and swelling in her eyes. This is started to resolve, phosphate levels are improving, she is doing very well in the context clinically she has well- controlled pain, she is able to walk without her walker short distances, her energy has improved, she is eating better and her anxiety and depression currently well controlled. She continues with her regimen of morphine 15 mg extended release twice daily, though there has been a shift in the way her pain presents. Originally when she was laying down she had relief from her pain, now laying down causes increased pressure and stiffness and discomfort, she does need to reposition but does not need to get out of bed. She reports and somewhat attributes to her difficulty to reposition in bed and stiffness, bilateral humeral pain, mostly at night. She reports with her phosphate levels in better control, this has decreased. She has needed to take the immediate release at bedtime, or as laying in bed often was the place she went for respite. She is up and around has not needed napping during the day, has not had any nausea. She did have 1 week of severe constipation, but this is since resolved. She is restarting her Balserva after being off 13 days tomorrow. Past Medical History: Urothelial CA s/p nephrectomy 03/05; bladder cancer 08/03 s/p TURBT, hypercholesteremia, asthma, GERD, claustrophobia, osteoarthritis, eczema, section x2, Port-A-Cath placement, ureteral stent placement Social History - Living Situation Living arrangement: At home Living Situation: With spouse/s.o. Support System: Patient lives at home with her micki Antonio, they have been for greater than a year but has been together over 17. 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 She has 2 sons who are available and supportive. She has siblings and friends have been rotating also to visit and give support. Medications/Allergies - Medications Home Medications: Ambulatory Orders Medication Instructions Recorded Confirmed Albuterol Sulf [Ventolin Hfa 1 puffs PO DAILY PRN 08/30/18 03/21/21 Inhaler] EPINEPHrine [Epinephrine] 1 ml SQ ONCE PRN 08/30/18 03/21/21 Prochlorperazine Maleate 10 mg PO Q8HR PRN 05/30/20 03/21/21 [Compazine] Morphine Ir [Ms Ir] 7.5 - 15 mg PO Q3HR PRN 07/03/20 03/21/21 Morphine ER [Morphine Sulfate ER] 15 mg PO BID MDD TID 07/17/20 03/21/21 Erdafitinib [Balversa] 8 mg PO DAILY 12/29/20 03/21/21 Ondansetron [Ondansetron Odt] 8 mg PO Q8HR PRN 12/29/20 03/21/21 Calcium Acetate [Phoslo] 1 tab PO .1 WITH MEALS 03/21/21 03/21/21 - Allergies Allergies/Adverse Reactions: Allergies Allergy/AdvReac Type Severity Reaction Status Date / Time peanut Allergy Severe Anaphylaxis Verified 08/30/18 14:43 sulfamethoxazole Allergy Severe Anaphylaxis Verified 08/30/18 14:43 [From ] trimethoprim [From ] Allergy Severe Anaphylaxis Verified 08/30/18 14:43 adhesive AdvReac Rash Verified 06/01/20 17:56 oxycodone AdvReac Diaphoresis Verified 06/01/20 17:57 Review of Systems - Constitutional Constitutional: reports: Fatigue (improved), Weakness (improved with improving), Weight stable. denies: Fever, Chills - Eyes Eyes: reports: Corrective lenses (reading), Other (recent retinal specialist related to eye changes from meds) - Ears, Nose & Throat Ears, Nose & Throat: reports: Dry mouth (taste changes improved but remains quite dry). denies: Mouth lesions - Cardiovascular Cardiovascular: reports: Decr. exercise tolerance. denies: Edema (resolved/ wearing support hose) - Respiratory Respiratory: denies: Cough, SOB at rest - Gastrointestinal Gastrointestinal: reports: Good appetite. denies: Constipation (resolved attributed to phoslo), Reflux/heartburn (improved with omeprazole) - Musculoskeletal Musculoskeletal: reports: Back pain, Muscle aches, Stiffness, Limited range of motion (right leg; difficulty bending; stiffness in am after sleeping; left leg new with limitations; has met with PT now twice), Muscle weakness, Assistive devices (using walker less for ambulation; offloads back) - Integumentary Integumentary: reports: Dryness, Hair changes (alopecia) - Neurological Neurological: reports: Focal weakness (right leg), Numbness ( right side;new left side LE both with difficulty with toe extension), Abnormal gait - Psychiatric Psychiatric: denies: Anxiety (improved) - Endocrine Endocrine: reports: Other (high phos related to Balserva; on hold 13 days) - All Other Systems All Other Systems: reports: Reviewed and negative Physical Exam - Vital Signs Temperature: 97.3 C Pulse Rate: 80 Respiratory Rate: 16 Blood Pressure: 112/72 - Physical Exam General Appearance: positive: No acute distress, Alert, Other (thin) Eyes Bilateral: positive: Normal inspection ENT: negative: No signs of dehydration Neck: positive: Trachea midline Cardiovascular: positive: Regular rate & rhythm Respiratory: positive: No respiratory distress, Breath sounds nml. negative: Wheezes Abdomen: positive: Soft Skin: positive: Pallor, Dryness Extremities: positive: No pedal edema. negative: Full ROM (limited on RLE; now some on left) Neurologic/Psychiatric: positive: Oriented x3, Mood/affect nml Palliative Care - POLST Patient has POLST: No Pain: Pain improved, Location (see HPI low back; radiating down both legs "stiffness") Feelings of wellbeing/Perceived Quality of Life: Good, Acceptable, Improved Sleep: Sleep improved, Variable sleep pattern Constipation: Yes, Intermittent constipation Performance Status: Patient has improved to functionally, is able to ambulate short distances without walker, does get increased pain with fatigue. She has not been back to physical therapy for a while, encouraged to go back for strengthening and stretching. She did find it beneficial. She is been able to work and sit for long periods of time, manage her ADLs, she is feeling quite encouraged. - Palliative Care Discussion: Palliative care discussion with and Johanne, focus on gratefulness of her current journey and how well she is doing. Discussed all the multiple appointments, changes, and also delays secondary to Covid and still awaiting stent replacement. She is in good spirits, Seth just recently diagnosed with diabetes. She has been focusing a lot of her energy and time and managing her diet secondary to needing to keep phosphates down. She has actually enjoyed this, and planning to share her knowledge. Both Antonio and Johanne understand the seriousness of her illness, continue to struggle with some tension regarding end-of-life planning, but have got plans done. Johanne continuing to focus on "living" but is slowly getting through tasks that also have meeting to Seth and she herself is glad to complete. Results - Lab Results Lab results reviewed: Yes Lab and Imaging Results: 03/11 calcium 10.2, phosphorus 5.4 down from 6.8 on 03/05, total bili 0.7, AST 37, ALT 36, alk phos 57, total protein 7.2, albumin 4.2, WBC 4.3, hemoglobin 10.3, hematocrit 30.8, sodium 140, potassium 3.8, BUN 11, creatinine 0.85, Impression and Recommendations - Palliative Care Impression: This is a micki 55-year-old woman with metastatic urothelial cancer with mets to the bone, lymphadenopathy, and known pulmonary mets. She is current on oral agent Jay versa, with recent hold secondary to hives phosphate levels. She is doing better overall, though is on quite a restrictive diet. She continues with persistent pain, but is tolerable on her current regimen. Patient's spirits are good, continues with her end-of-life planning. Palliative care continue to provide support for symptom management and psychosocial support and anticipatory guidance. Recommendations/Counseling Done: 1. Pain of neoplastic origin. Patient continuing to improve, using her morphine 50 mg sustained release twice daily and MSIR at bedtime, she is finding ways to manage and get better sleep. She is very encouraged that she is able to tolerate being up during the day without needing to rest for pain relief. Patient does have ongoing progressive numbness, and some neurologic changes, but has recently spoken with unattended ground sensor specialist without further interventions recommended at this time. 2. Generalized weakness. Patient is working on progressive ambulation program, is able to walk without the walker. Limiting factor does tend to be lower back pain and fatigue. She is integrating more normal activities into her schedule, encouraged to go back to physical therapy for balance training and continue stretching/strengthening. 3. Onychomycosis. Patient does have nail changes, consistent with side effects noted in Balserva side effects. Nails are thickening, no fungal appearance. At this point is doing which she cannot protect them, no signs or symptoms of infection or inflamed cuticles. We will continue to monitor. 4. Anxiety. Patient feels like she is coping really well right now, focusing on the positive. Is in good spirits, feeling encouraged. She is very engaged in her nutritional endeavors and recipes. She is feeling like she is in a good space currently. No persistent symptoms at this time. 5. Advanced care planning. Meeting with patient and , to continue process feelings regarding patient's journey, now with some health challenges. Both approach her decline in the future in a different way, finding, ground as well as encouragement. Palliative care to continue provide support for anticipatory guidance. 60 minutes with greater than 50% of this done in counseling regarding symptom management, coping, review of current journey and anticipatory guidance.
== END 2021-03-20 11:01 | disposition home or self-care (01) ==
LOC: PC 11:00
PROVIDERS: ATTEND Nurse Practitioner Adult Health
DX: Z51.5 Encounter for palliative care (principal); G89.3 Neoplasm related pain (acute) (chronic); R53.83 Other fatigue; R53.1 Weakness; F41.9 Anxiety disorder, unspecified; B35.1 Tinea unguium; R20.0 Anesthesia of skin; C79.51 Secondary malignant neoplasm of bone; C67.9 Malignant neoplasm of bladder, unspecified; C68.0 Malignant neoplasm of urethra; C78.00 Secondary malignant neoplasm of unspecified lung; C77.9 Secondary and unspecified malignant neoplasm of lymph node, unspecified; Z79.52 Long term (current) use of systemic steroids; Z79.899 Other long term (current) drug therapy; Z90.5 Acquired absence of kidney; Z96.0 Presence of urogenital implants
CPT/HCPCS: 99350

== ENCOUNTER 2021-04-23 11:00 | Outpatient (CLI) | payer OTHER ==
--- NOTE | 2021-04-23 16:34 | CONSULTATION NOTE ---
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 She recently had her ureteral splint changed out, has noted some urinary retention symptoms since this time, but does feel like she is emptying her bladder after waiting for a longer period of time. She is now on oral Balversa, with concerns for watching her phosphate levels, she is seeing a retinal specialist secondary to vision changes and swelling in her eyes, and recently saw dermatology for fingernail thickening discoloration with diagnosis of paronchiya of finger unspecified and onchomyosis. She is doing some fairly intensive support work to manage this, with vinegar soaks, gentamicin solution under her nail bed, as well as moisturizing her skin on a regular basis for skin cracks. Does get her labs drawn every 2 weeks, and most recently they have all been within normal range, her bilirubin was 0.8, but concerned about her ALT which was 65. She is increasing her activity level, she continues on her regimen of morphine 50 mg twice daily, but is having more pain at night, and now laying down causes increased pressure and stiffness discomfort whereas this is what used to give her relief. She has been more active, suspect this is adding to her discomfort, she does have fairly distinct ataxic gait, but is ambulatory without her walker. She was needing immediate release morphine 1 time at night, last night had to take 2. She has had no nausea, no further diarrhea, and is doing well emotionally overall. Though is still holding on in the context of the seriousness of her illness, but she chooses to address the seriousness of her illness with a positive attitude and appreciates being able to share her ongoing emotional journey with this. Past Medical History: Urothelial CA s/p nephrectomy 03/05; bladder cancer 08/03 s/p TURBT, hypercholesteremia, asthma, GERD, claustrophobia, osteoarthritis, eczema, section x2, Port-A-Cath placement, ureteral stent placement replaced last month Social History - Living Situation Living arrangement: At home Living Situation: With spouse/s.o. 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 She lives at home with her micki Antonio who continues to be supportive of her journey. They have been together over 17 years, they have been coming up on year and a half. She has 2 sons who are available and supportive, she has siblings and friends who have been rotating also to visit and give report relief Medications/Allergies - Medications Home Medications: Ambulatory Orders Medication Instructions Recorded Confirmed Albuterol Sulf [Ventolin Hfa 1 puffs PO DAILY PRN 08/30/18 04/24/21 Inhaler] EPINEPHrine [Epinephrine] 1 ml SQ ONCE PRN 08/30/18 04/24/21 Prochlorperazine Maleate 10 mg PO Q8HR PRN 05/30/20 04/24/21 [Compazine] Morphine Ir [Ms Ir] 7.5 - 15 mg PO Q3HR PRN 07/03/20 04/24/21 Morphine ER [Morphine Sulfate ER] 15 mg PO BID MDD TID 07/17/20 04/24/21 Erdafitinib [Balversa] 8 mg PO DAILY 12/29/20 04/24/21 Ondansetron [Ondansetron Odt] 8 mg PO Q8HR PRN 12/29/20 04/24/21 Calcium Acetate [Phoslo] 1 tab PO .1 WITH MEALS 03/21/21 04/24/21 - Allergies Allergies/Adverse Reactions: Allergies Allergy/AdvReac Type Severity Reaction Status Date / Time peanut Allergy Severe Anaphylaxis Verified 08/30/18 14:43 sulfamethoxazole Allergy Severe Anaphylaxis Verified 08/30/18 14:43 [From ] trimethoprim [From ] Allergy Severe Anaphylaxis Verified 08/30/18 14:43 adhesive AdvReac Rash Verified 06/01/20 17:56 oxycodone AdvReac Diaphoresis Verified 06/01/20 17:57 Review of Systems - Constitutional Constitutional: reports: Fatigue (improved), Weakness (improved), Weight stable (125). denies: Fever, Chills - Eyes Eyes: reports: Blurred vision, Corrective lenses (reading), Other (recent retinal specialist related to eye changes from meds; continues to monitor) - Ears, Nose & Throat Ears, Nose & Throat: reports: Dry mouth (taste changes improved but remains quite dry). denies: Mouth lesions - Cardiovascular Cardiovascular: reports: Decr. exercise tolerance. denies: Edema (resolved/ wearing support hose) - Respiratory Respiratory: denies: Cough, SOB at rest - Gastrointestinal Gastrointestinal: reports: Good appetite (is with medication timing only able to eat BID but hasn't lost weight). denies: Diarrhea, Nausea, Reflux/heartburn (improved with omeprazole) - Genitourinary Genitourinary: reports: Other (retention symptoms since stent exchange) - Musculoskeletal Musculoskeletal: reports: Back pain, Muscle aches, Stiffness, Limited range of motion (right leg; difficulty bending; stiffness in am after sleeping; left leg new with limitations; has met with PT now twice), Muscle weakness - Integumentary Integumentary: reports: Dryness, Nail changes (pretty severe; tenderness and pain with use), Hair changes (alopecia) - Neurological Neurological: reports: Focal weakness (right leg), Numbness ( right side;new left side LE both with difficulty with toe extension), Abnormal gait - Psychiatric Psychiatric: denies: Anxiety (improved) - Endocrine Endocrine: reports: Other (high phos related to Balserva now normal level) - All Other Systems All Other Systems: reports: Reviewed and negative Physical Exam - Vital Signs Temperature: 97.5 C Pulse Rate: 72 Respiratory Rate: 18 Blood Pressure: 116/72 - Physical Exam General Appearance: positive: No acute distress, Alert, Other (thin) Eyes Bilateral: positive: Normal inspection ENT: negative: No signs of dehydration Neck: positive: Trachea midline Cardiovascular: positive: Regular rate & rhythm Respiratory: positive: No respiratory distress, Breath sounds nml. negative: Wheezes Abdomen: positive: Soft Skin: positive: Pallor, Dryness Extremities: positive: No pedal edema (wearing stockings). negative: Full ROM (limited on RLE; now some on left) Neurologic/Psychiatric: positive: Oriented x3, Mood/affect nml Palliative Care - POLST Patient has POLST: No Pain: Pain worsening, Location (lower back/radiating into legs exacerbated at night;) Feelings of wellbeing/Perceived Quality of Life: Good, Acceptable Sleep: Variable sleep pattern Performance Status: Patient's functional status continues to improve, she is walking longer distances, and is doing this with some exacerbation of her pain at night but overall able to tolerate. She is independent in her ADLs, though is not able to bend fully to do lower extremity dressing or manage her compression hose. She is not currently doing PT, but does did version of a home exercise program and feels like she is making progress. - Palliative Care Discussion: Discussion centered with Johanne, continues to be quite grateful of her current journey. She does approach it with a positive attitude, she reports "I choose to be awesome". She has had anxiety, and facing difficulties, but tries to reframe in a positive light. It has been difficult as her is a glass half empty and she is a class helpful kind gal. She does feel like she like to set a goal of doing a family trip, she understands that the treatment is palliative in nature and continues to feel like she has "the dream team" and very grateful as far as her current quality and quantity of life. She recently participated in education, regarding treatment of her disease, this side effects have been difficult for her, as well as being compliant with diet. She does feel like she has a "dream team", and well supported. She recently participated in some education that really helped her understand the treatment options and how dahlia she was to be on the Valsalva even though she does struggle with its side effects and impact on her quality of life. She is appropriately tearful when sharing her hopes and the anticipation and concern for the future. Results - Lab Results Lab results reviewed: Yes Impression and Recommendations - Palliative Care Impression: This is a micki 55-year-old woman with metastatic urothelial cancer with mets to the bone, lymphadenopathy, and known pulmonary mets. She is currently on oral agent Balversa, is doing fairly well overall though is having significant quality of life issues related to side effects on her nails. She continues with her journey, anxiety about the seriousness of her illness, and continues to choose to focus on the positive. She continues with persistent pain, has had some worsening at night. Patient's spirits remain good. Palliative care continue provide support for symptom management and psychosocial support and anticipatory guidance. Recommendations/Counseling Done: 1. Pain of neoplastic origin. Patient continues to use morphine 15 mg sustained release twice daily, MSIR at bedtime, is having some increased pain with increased activity but is finding ways to manage. She is able to be up during the day, has had some progressive numbness but most recent scans show bone stable per her report. 2. Onychomycosis. Patient had an appointment with dermatology, her nails also continue to worsen, and causing quite a bit of pain and discomfort. There continue to work on trying to avoid infection and need to hold treatment. She does have a fairly intense routine, is working to find a balance of adherence as well is managing to integrate into her daily routine. 3. Anxiety. Patient continues to focus on the positive, did spend time with support for counseling for anxiety, processing seriousness of illness, and anticipatory grief. 4. Advanced care planning. Patient continues to work on her end-of-life planning documents and tasks, remains hopeful for the future, but also realistic in the context of this. She is hoping to plan a family trip this summer, some problem-solving regarding labs etc. done in brainstorming for her to meet her goals.Palliative care continue provide support for anticipatory guidance. 60 minutes with greater than 50% of this done in counseling regarding anticip atory guidance, anxiety, goals of care and review of journey.
== END 2021-04-23 11:01 | disposition home or self-care (01) ==
LOC: PC 11:00
PROVIDERS: ATTEND Nurse Practitioner Adult Health
DX: Z51.5 Encounter for palliative care (principal); G89.3 Neoplasm related pain (acute) (chronic); C68.0 Malignant neoplasm of urethra; C79.51 Secondary malignant neoplasm of bone; C78.00 Secondary malignant neoplasm of unspecified lung; B35.1 Tinea unguium; F41.9 Anxiety disorder, unspecified; Z90.5 Acquired absence of kidney; R53.83 Other fatigue
CPT/HCPCS: 99350

== ENCOUNTER 2021-06-12 11:00 | Outpatient (CLI) | payer OTHER ==
--- NOTE | 2021-06-12 14:24 | CONSULTATION NOTE ---
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 She did have recurrence of her urothelial cancer with mets to the spine, lung, and lymph nodes. She does have ureteral splint, is now on a new treatment bowel versus, has had ongoing complications with holds for phosphate levels, vision changes secondary to side effects, being followed by retinal specialist and dermatology for skin and nail side effects.Patient's recent scans show her disease is being managed, she was having worsening side effects, so dose has been reduced to 6 mg. She does admit to having some anxiety regarding this, as side effects are less that she is feeling much better. Patient continues with persistent pain, she is on MS extended release 15 mg twice a day, and 7.5 to 15 mg immediate release for breakthrough pain. Her pain is exacerbated by sitting and laying. She reports she has back pain" in a different way". She has not been limited by her pain with her activity, though she does have somewhat of a measured gait. Her pain is been mostly bothering her at night she describes a "stiffness" and feels like concrete, the laying down is making it difficult for her to move or reposition at night. She does usually take a immediate release partway through the night, but is not sleeping well currently because of this. After much discussion it is determined is mostly the discomfort that is waking her up. Patient continues to feel very grateful at the response she is having, she is planning a family vacation 07/01-07/15, RV road trip with visiting relatives, [place], including the [place]. She reports her energy has been good, she has been managing her phosphate levels, and her activity has been increasing. She reports she and her able to walk 30 minutes, she no longer of course needs a walker either. As far as side effects, she did have this last week itching and drainage from her eyes, with some redness and discoloration. She does have some faded dull pink left greater than right over her eyelids, unclear if related to allergies or new make-up that she has been trying. But has improved over the last couple days. Past Medical History: Hypercholesterolemia, asthma, GERD, claustrophobia, osteoarthritis, eczema, section x2, Port-A-Cath placement, renal stent placement last changed 04/07 Social History - Living Situation Living arrangement: At home Living Situation: With spouse/s.o. 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 She has had more energy. She is very much enjoying working in her gardening, continue with her walks and has had multiple visits. She is to her micki Antonio who continues to be supportive of her journey they have been together over 17 years. She has 2 sons are available and supportive, she has siblings and friends have been rotating also did visit and give support and relief Medications/Allergies - Medications Home Medications: Ambulatory Orders Medication Instructions Recorded Confirmed Albuterol Sulf [Ventolin Hfa 1 puffs PO DAILY PRN 08/30/18 06/12/21 Inhaler] EPINEPHrine [Epinephrine] 1 ml SQ ONCE PRN 08/30/18 06/12/21 Prochlorperazine Maleate 10 mg PO Q8HR PRN 05/30/20 06/12/21 [Compazine] Morphine Ir [Ms Ir] 7.5 - 15 mg PO Q3HR PRN 07/03/20 06/12/21 Morphine ER [Morphine Sulfate ER] 15 mg PO BID MDD TID 07/17/20 06/12/21 Erdafitinib [Balversa] 6 mg PO DAILY 12/29/20 06/12/21 Ondansetron [Ondansetron Odt] 8 mg PO Q8HR PRN 12/29/20 06/12/21 Calcium Acetate [Phoslo] 1 tab PO .1 WITH MEALS MDD using 2 03/21/21 06/12/21 x a day - Allergies Allergies/Adverse Reactions: Allergies Allergy/AdvReac Type Severity Reaction Status Date / Time peanut Allergy Severe Anaphylaxis Verified 08/30/18 14:43 sulfamethoxazole Allergy Severe Anaphylaxis Verified 08/30/18 14:43 [From ] trimethoprim [From ] Allergy Severe Anaphylaxis Verified 08/30/18 14:43 adhesive AdvReac Rash Verified 06/01/20 17:56 oxycodone AdvReac Diaphoresis Verified 06/01/20 17:57 Review of Systems - Constitutional Constitutional: reports: Weight stable (124.6). denies: Fever, Chills - Eyes Eyes: reports: Irritation (eyelids attributed to eye make up or allergies; resolving), Blurred vision, Corrective lenses (reading), Other (recent retinal specialist related to eye changes from meds; continues to monitor) - Ears, Nose & Throat Ears, Nose & Throat: reports: Dry mouth (taste changes improved but remains quite dry). denies: Mouth lesions - Cardiovascular Cardiovascular: denies: Edema (resolved/ wearing support hose) - Respiratory Respiratory: denies: Cough, SOB at rest - Gastrointestinal Gastrointestinal: reports: Good appetite (is with medication timing only able to eat BID but hasn't lost weight). denies: Diarrhea, Nausea, Reflux/heartburn (improved with omeprazole) - Musculoskeletal Musculoskeletal: reports: Back pain, Muscle aches, Stiffness, Limited range of motion (right leg; difficulty bending; stiffness in am after sleeping; left leg new with limitations; walking up to 30 min a day; gardening), Muscle weakness - Integumentary Integumentary: reports: Dryness, Nail changes (improved at lower doses), Hair changes (alopecia; starting to grow) - Neurological Neurological: reports: Focal weakness (right leg), Numbness ( right side;new left side LE both with difficulty with toe extension/stiffness), Abnormal gait - Psychiatric Psychiatric: denies: Anxiety (improved) - Endocrine Endocrine: reports: Other (high phos related to Balserva 4.7) - All Other Systems All Other Systems: reports: Reviewed and negative Physical Exam - Vital Signs Temperature: 97.5 C Pulse Rate: 74 Respiratory Rate: 18 O2 Saturation: 97 (ra @ rest) Blood Pressure: 104/64 - Physical Exam General Appearance: positive: No acute distress, Alert, Other (thin) Eyes Bilateral: positive: Normal inspection ENT: negative: No signs of dehydration Neck: positive: Trachea midline Cardiovascular: positive: Regular rate & rhythm Respiratory: positive: No respiratory distress, Breath sounds nml. negative: Wheezes Abdomen: positive: Soft Skin: positive: Pallor, Dryness, Other (nails with overgrowth/thickened) Extremities: positive: No pedal edema (wearing stockings). negative: Full ROM (limited on RLE; now some on left) Neurologic/Psychiatric: positive: Oriented x3, Mood/affect nml Palliative Care - POLST Patient has POLST: No POLST Status: Full Code Pain: Comment (see HPI) Feelings of wellbeing/Perceived Quality of Life: Good, Acceptable, Improved Sleep: Sleeps poorly, Variable sleep pattern Constipation: No Performance Status: Patient's functional status continues to improve, she is up to ambulating 30 minutes a day with her on daily walks. She is gardening, she does pace herself when she feels tired. Most limiting factor has been poor sleep. - Palliative Care Discussion: Discussion continues to be with Joahnne, regarding gratefulness of her current journey that she is still alive. She is very excited be planning her vacation with her kids, wanting to leave trip as a memory. She does see this is time they can spend together that is quite meaningful for them when they are traveling. They will be visiting family members and as well as different locations that she is excited to see. She is somewhat hesitant with pending s cans, hoping for the best but has taken breaks in the past. Encouraged to continue on her goal to complete this journey. Continues to feel like she has good health care and support, feels better with the decreased side effects of the bowel versus. Appropriately so she is anxious regarding the decreased dose for effectiveness, but continues to be fully involved in her care. Results - Lab Results Lab results reviewed: Yes Lab and Imaging Results: Creatinine 1.0 has eased up, protein 7.4, albumin 4.0, bilirubin 0.7, calcium 9.0, AST 35 alk phos 61 GFR 59 Impression and Recommendations - Palliative Care Impression: This is a micki 55-year-old woman with metastatic urothelial cancer with mets to the bone, lymph nodes, and known pulmonary mets. She is currently on oral agent Lares versa, is having better luck with side effects with decreased dosing, and feels like her quality of life issues have improved. She continues with her journey, though appropriate anxiety about the seriousness of her illness, continues to focus on the positive and gratefulness. She does have some persistent pain which is worsening at night, patient remains hesitant to make any changes. Palliative care continue provide support for symptom management and psychosocial support as well as anticipatory guidance Recommendations/Counseling Done: 1. Pain of neoplastic origin. Patient continues to use morphine 50 mg extended release twice daily, MS IR 7.5 mg upon wakening at night. She is having poor sleep secondary to discomfort and "stiffness". Discussed secondary to pain, is exacerbated by laying down and during nighttime hours, consider increasing extended release to 30 mg at bedtime to get worse sustained relief as well as sleep. Patient very pill adverse, will consider, counseling provided regarding pharmacokinetics and recommendations. 2. Anxiety. Patient continues to focus on positive, meeting with her and her today, review of the journey and ups and downs. Counseling provided for support and anticipatory grief, as well as processing current experiences and feelings. 3. Nasal dryness. Encouraged to use nasal spray 2-3 times a day, to keep mucous membranes moist. Patient describing significant dryness, and trauma with dried nasal drainage. 4. Advanced care planning. Patient remains hopeful for the future, but is realistic in the context of this. She does have her family trip planned, is looking forward to making this meaningful and for meaningful connection for her sons. She does feel like they are in a better place, encouraged to continue focusing on her goals regarding this. Palliative care continue provide support and anticipatory guidance. 60 minutes with greater than 50% of this done in counseling regarding pain and symptom management, psychosocial support regarding anxiety and anticipatory guidance.
== END 2021-06-12 11:01 | disposition home or self-care (01) ==
LOC: PC 11:00
PROVIDERS: ATTEND Nurse Practitioner Adult Health
DX: Z51.5 Encounter for palliative care (principal); G89.3 Neoplasm related pain (acute) (chronic); C67.9 Malignant neoplasm of bladder, unspecified; C78.00 Secondary malignant neoplasm of unspecified lung; C77.9 Secondary and unspecified malignant neoplasm of lymph node, unspecified; C79.51 Secondary malignant neoplasm of bone; F41.9 Anxiety disorder, unspecified; J34.89 Other specified disorders of nose and nasal sinuses
CPT/HCPCS: 99350

== ENCOUNTER 2023-03-15 15:29 | Outpatient (CLI) | payer OTHER ==
[2023-03-15 15:49] LABS: BASOPHILS % (AUTO) 0.4 %; EOSINOPHILS # (AUTO) 0.2 10^3/uL (0.0-0.7); EOSINOPHILS % (AUTO) 1.9 %; HCT - HEMATOCRIT 27.7 % (37.0-47.0); HGB - HEMOGLOBIN 8.3 g/dL (12.0-16.0); LYMPHOCYTES # (AUTO) 1.3 10^3/uL (1.5-3.5); LYMPHOCYTES % (AUTO) 12.2 %; MEAN CORPUSCULAR HEMOGLOBIN 25.6 pg (27.0-31.0); MEAN CORPUSCULAR VOLUME 85.5 fL (81.0-99.0); MEAN PLATELET VOLUME 8.2 fL (7.9-10.8); MONOCYTES # (AUTO) 0.9 10^3/uL (0.0-1.0); MONOCYTES % (AUTO) 8.9 %; NEUTROPHILS # (AUTO) 7.9 10^3/uL (1.5-6.6); NEUTROPHILS % (AUTO) 76.3 %; PLT - PLATELET COUNT 285 10^3/uL (130-450); RED BLOOD COUNT 3.24 10^6/uL (4.20-5.40); RED CELL DISTRIBUTION WIDTH 17.2 % (12.0-15.0); WHITE BLOOD COUNT 10.4 x10^3/uL (4.8-10.8)
[2023-03-15 16:03] LABS: ALBUMIN 3.3 g/dL (3.2-5.5); ALBUMIN/GLOBULIN RATIO 0.9 (1.0-2.2); BILIRUBIN,TOTAL 0.6 mg/dL (0.2-1.0); CALCIUM 9.9 mg/dL (8.5-10.3); CREATININE 0.6 mg/dL (0.6-1.3); POTASSIUM 3.9 mmol/L (3.5-4.5)
== END 2023-03-15 15:30 | disposition home or self-care (01) ==
LOC: LAB 15:29
PROVIDERS: ATTEND Internal Medicine Medical Oncology
DX: C79.51 Secondary malignant neoplasm of bone (principal); E83.52 Hypercalcemia
CPT/HCPCS: 36415; 80053; 85025

== ENCOUNTER 2023-03-21 13:21 | Outpatient (CLI) | payer OTHER ==
[2023-03-21 13:41] LABS: BASOPHILS % (AUTO) 0.3 %; EOSINOPHILS # (AUTO) 0.2 10^3/uL (0.0-0.7); EOSINOPHILS % (AUTO) 2.1 %; HCT - HEMATOCRIT 26.4 % (37.0-47.0); LYMPHOCYTES # (AUTO) 1.2 10^3/uL (1.5-3.5); LYMPHOCYTES % (AUTO) 10.8 %; MEAN CORPUSCULAR HGB CONC 30.3 g/dL (32.0-36.0); MEAN CORPUSCULAR VOLUME 85.7 fL (81.0-99.0); MEAN PLATELET VOLUME 9.3 fL (7.9-10.8); MONOCYTES # (AUTO) 1.2 10^3/uL (0.0-1.0); MONOCYTES % (AUTO) 10.8 %; NEUTROPHILS # (AUTO) 8.7 10^3/uL (1.5-6.6); NEUTROPHILS % (AUTO) 75.6 %; PLT - PLATELET COUNT 327 10^3/uL (130-450); RED BLOOD COUNT 3.08 10^6/uL (4.20-5.40); RED CELL DISTRIBUTION WIDTH 17.8 % (12.0-15.0); WHITE BLOOD COUNT 11.5 x10^3/uL (4.8-10.8)
[2023-03-21 14:02] LABS: THYROID STIMULATING HORMONE 2.01 uIU/mL (0.34-5.60)
[2023-03-21 14:03] LABS: ALBUMIN 3.3 g/dL (3.2-5.5); ALBUMIN/GLOBULIN RATIO 0.9 (1.0-2.2); BILIRUBIN,TOTAL 0.5 mg/dL (0.2-1.0); CALCIUM 9.2 mg/dL (8.5-10.3); CREATININE 0.6 mg/dL (0.6-1.3); MAGNESIUM 1.9 mg/dL (1.7-2.3); POTASSIUM 3.7 mmol/L (3.5-4.5); TOTAL PROTEIN 6.8 g/dL (6.4-8.9)
== END 2023-03-21 13:22 | disposition home or self-care (01) ==
LOC: LAB 13:21
PROVIDERS: ATTEND Nurse Practitioner Adult Health
DX: C68.9 Malignant neoplasm of urinary organ, unspecified (principal); R53.82 Chronic fatigue, unspecified
CPT/HCPCS: 36415; 80053; 83735; 84443; 85025